=== PATIENT | male | born 1930 | race Caucasian/White ===

== ENCOUNTER 2017-06-19 13:47 | Emergency (ER) | payer BC, OTHER ==
[~2017-06-19 13:47] MED LIST: ASPI81TA28 PO; LOSA1TAB38 PO
[2017-06-19 13:49] VITALS: TEMP 36.7
[2017-06-19 14:35] LABS: BASO % 0.6 %; BASO ABS # 0.03 K/uL (0-0.2); EOS % 6.6 %; EOS ABS # 0.33 K/uL (0-0.5); HEMATOCRIT 39.3 % (42-52); HEMOGLOBIN 13.4 g/dL (14.0-18.0); IG# 0.02 K/uL (0.00-0.02); LYMPH % 38.2 %; LYMPH ABS # 1.92 K/uL (1.2-3.4); MEAN CELL VOLUME 92.5 fL (80-100); MEAN CORPUSCULAR HEMOGLOBIN 31.5 pg (25-34); MEAN CORPUSCULAR HGB CONC 34.1 g/dl (32-36); MEAN PLATELET VOLUME 9.6 fL (7.4-10.4); MONO % 7.4 %; MONO ABS # 0.37 K/uL (0.11-0.59); NEUT % 46.8 %; NEUT ABS # 2.36 K/uL (1.4-6.5); PLATELET COUNT 214 K/uL (130-400); RED CELL DISTRIBUTION WIDTH CV 12.5 % (11.5-14.5); RED CELL DISTRIBUTION WIDTH SD 42.4 fL (36.4-46.3); WHITE BLOOD COUNT 5.03 K/uL (4.8-10.8)
[2017-06-19 14:53] LABS: ALBUMIN 3.7 gm/dl (3.4-5.0); ALT/SGPT 30 U/L (12-78); AST/SGOT 28 U/L (15-37); BLOOD UREA NITROGEN 14 mg/dl (7-18); CALCIUM 8.4 mg/dl (8.5-10.1); CARBON DIOXIDE 25 mmol/L (21-32); CREATININE 1.45 mg/dl (0.60-1.40); GLUCOSE 154 mg/dl (70-99); POTASSIUM 3.8 mmol/L (3.5-5.1); SODIUM 142 mmol/L (136-145)
--- NOTE | 2017-06-19 14:54 | DIAGNOSTIC IMAGING REPORT ---
SINGLE VIEW CHEST CLINICAL HISTORY: Atypical chest pain. FINDINGS: An AP, portable, upright chest radiograph is compared to study dated 01/17/2013 and correlated with abdominal CT dated 12/09/2010. The examination is degraded by portable technique and patient rotation. The heart is top normal for projection and there is atherosclerotic calcification of the thoracic aorta. Extensive calcified pleural plaques are similar to previous. No airspace consolidation or large pleural effusion is identified. No pneumothorax is seen. The skeletal structures are osteopenic. The bony fluoroscopy is grossly intact. IMPRESSION: No acute cardiopulmonary abnormality. Electronically signed by: Jameel Chaudhary M.D. 06/19/2017 2:53 PM Dictated Date/Time: 06/19/2017 2:52 PM
[2017-06-19 15:04] LABS: ALKALINE PHOSPHATASE 88 U/L (45-117)
--- NOTE | 2017-06-19 16:12 | EMERGENCY ROOM VISIT NOTE ---
History Report prepared by Lurdes: Yessica Colvin Under the Supervision of: Dr. Lupe Wadsworth D.O. First contact with patient: 13:55 Chief Complaint: CARDIAC ASSESSMENT Stated Complaint: PAIN IN HEART AREA History of Present Illness The patient is an 87 year old male who presents to the Emergency Room with complaints of improving chest pain starting around 45 minutes ago. The patient was watching TV when he suddenly started complaining of pain in his left chest. He described the pain as sharp. He did not complain of lightheadedness, nausea, arm pain, back pain, neck pain, abdominal pain, or SOB. He did not appear pale or diaphoretic. The pain lasted until arrival to the ED before improving. The pain worsens with deep breaths. He has a history of hypertension. He does not have any history of heart problems, high cholesterol, kidney disease, reflux, or diabetes. He has not had any recent illness or fever. He has not had any change in appetite or activity. The history is mostly provided by the family. Patient is a poor historian secondary to known dementia. Source of History: patient, family Onset: 45 minutes ago Position: chest (left) Quality: sharp Timing: other (improving) Modifying Factors (Worsening): breathing Associated Symptoms: No diaphoresis, No neck pain, No SOB, No nausea, No abdominal pain, No back pain Review of Systems See HPI for pertinent positives & negatives. A total of 10 systems reviewed and were otherwise negative. Past Medical & Surgical Medical Problems: (1) Dementia (2) Hypertension Family History Noncontributory secondary to age. Social History Smoking Status: Never Smoker Marital Status: Housing Status: lives with significant other Occupation Status: retired Current/Historical Medications Scheduled Aspirin (Aspirin Ec), 81 MG PO DAILY Losartan Potassium (Cozaar), 100 MG PO DAILY Allergies Coded Allergies: No Known Allergies (Unverified , 06/19/17) Physical Exam Vital Signs Date Time Temp Pulse Resp B/P (MAP) Pulse Ox O2 Delivery O2 Flow Rate FiO2 06/19/17 17:40 63 18 151/89 98 Room Air 06/19/17 16:39 51 18 155/73 97 Room Air 06/19/17 14:50 60 18 142/70 96 Room Air 06/19/17 14:24 59 06/19/17 13:49 36.7 72 20 161/95 98 Room Air Physical Exam GENERAL: alert, well appearing, well nourished, no distress, non-toxic EYE EXAM: normal conjunctiva, PERRL and EOM's grossly intact OROPHARYNX: no exudate, no erythema, lips, buccal mucosa, and tongue normal and mucous membranes are moist NECK: supple, no nuchal rigidity, no adenopathy, non-tender CHEST: Mild reproducible left chest wall tenderness. No crepitus. No step off. No evidence of trauma. LUNGS: Clear to auscultation. Normal chest wall mechanics HEART: no murmurs, S1 normal and S2 normal ABDOMEN: abdomen soft, non-tender, normo-active bowel sounds, no masses, no rebound or guarding. BACK: Back is symmetrical on inspection and there is no deformity, no midline tenderness, no CVA tenderness. SKIN: no rashes and no bruising UPPER EXTREMITIES: upper extremities are grossly normal. LOWER EXTREMITIES: No pitting edema. NEURO EXAM: Patient pleasantly confused, follows commands, can answer a few basic questions. Cranial nerves II-XII grossly intact, normal speech, no gross weakness of arms, no gross weakness of legs. Medical Decision & Procedures ER Provider Diagnostic Interpretation: Radiology results have been interpreted by the radiologist and reviewed by me. SINGLE VIEW CHEST CLINICAL HISTORY: Atypical chest pain. FINDINGS: An AP, portable, upright chest radiograph is compared to study dated 01/17/2013 and correlated with abdominal CT dated 12/09/2010. The examination is degraded by portable technique and patient rotation. The heart is top normal for projection and there is atherosclerotic calcification of the thoracic aorta. Extensive calcified pleural plaques are similar to previous. No airspace consolidation or large pleural effusion is identified. No pneumothorax is seen. The skeletal structures are osteopenic. The bony fluoroscopy is grossly intact. IMPRESSION: No acute cardiopulmonary abnormality. Electronically signed by: Jameel Chaudhary M.D. 06/19/2017 2:53 PM Dictated Date/Time: 06/19/2017 2:52 PM Laboratory Results 06/19/17 14:20 Red Blood Count 4.25, Mean Corpuscular Volume 92.5, Mean Corpuscular Hemoglobin 31.5, Mean Corpuscular Hemoglobin Concent 34.1, Mean Platelet Volume 9.6, Neutrophils (%) (Auto) 46.8, Lymphocytes (%) (Auto) 38.2, Monocytes (%) (Auto) 7.4, Eosinophils (%) (Auto) 6.6, Basophils (%) (Auto) 0.6, Neutrophils # (Auto) 2.36, Lymphocytes # (Auto) 1.92, Monocytes # (Auto) 0.37, Eosinophils # (Auto) 0.33, Basophils # (Auto) 0.03 06/19/17 14:20 Test 06/19/17 14:20 06/19/17 16:30 White Blood Count 5.03 K/uL (4.8-10.8) Red Blood Count 4.25 M/uL (4.7-6.1) Hemoglobin 13.4 g/dL (14.0-18.0) Hematocrit 39.3 % (42-52) Mean Corpuscular Volume 92.5 fL (80-100) Mean Corpuscular Hemoglobin 31.5 pg (25-34) Mean Corpuscular Hemoglobin Concent 34.1 g/dl (32-36) Platelet Count 214 K/uL (130-400) Mean Platelet Volume 9.6 fL (7.4-10.4) Neutrophils (%) (Auto) 46.8 % Lymphocytes (%) (Auto) 38.2 % Monocytes (%) (Auto) 7.4 % Eosinophils (%) (Auto) 6.6 % Basophils (%) (Auto) 0.6 % Neutrophils # (Auto) 2.36 K/uL (1.4-6.5) Lymphocytes # (Auto) 1.92 K/uL (1.2-3.4) Monocytes # (Auto) 0.37 K/uL (0.11-0.59) Eosinophils # (Auto) 0.33 K/uL (0-0.5) Basophils # (Auto) 0.03 K/uL (0-0.2) RDW Standard Deviation 42.4 fL (36.4-46.3) RDW Coefficient of Variation 12.5 % (11.5-14.5) Immature Granulocyte % (Auto) 0.4 % Immature Granulocyte # (Auto) 0.02 K/uL (0.00-0.02) Prothrombin Time 10.4 SECONDS (9.0-12.0) Prothromb Time International Ratio 1.0 (0.9-1.1) D-Dimer 220 ug/L FEU (0-500) Anion Gap 8.0 mmol/L (3-11) Estimated GFR () 50.5 Estimated GFR (Non- 43.6 BUN/Creatinine Ratio 9.4 (10-20) Calcium Level 8.4 mg/dl (8.5-10.1) Magnesium Level 2.2 mg/dl (1.8-2.4) Total Bilirubin 0.3 mg/dl (0.2-1) Aspartate Amino Transf (AST/SGOT) 28 U/L (15-37) Alanine Aminotransferase (ALT/SGPT) 30 U/L (12-78) Alkaline Phosphatase 88 U/L (45-117) Pro-B-Type Natriuretic Peptide 364 pg/ml (0-1800) Total Protein 7.0 gm/dl (6.4-8.2) Albumin 3.7 gm/dl (3.4-5.0) Globulin 3.3 gm/dl (2.5-4.0) Albumin/Globulin Ratio 1.1 (0.9-2) Thyroid Stimulating Hormone (TSH) 1.100 uIu/ml (0.300-4.500) Troponin I < 0.015 ng/ml (0-0.045) Laboratory results per my review. ECG Per My Interpretation Indication: chest pain Rate (beats per minute): 55 Rhythm: sinus bradycardia Findings: no acute ischemic change, no ectopy, other (normal axis, normal intervals) ED Course 1418: The patient was evaluated in room A10. A complete history and physical exam was performed. 1539: I reevaluated the patient. He has not had any more pain. 1752: Upon reevaluation, the patient is feeling better. I discussed the findings and the treatment plan with the patient and family. They verbalize agreement and understanding. He was discharged home. Medical Decision Differential diagnoses includes but is not limited to acute coronary syndrome, myocardial infarction, pericarditis, pulmonary embolus, aortic dissection, pneumonia, pneumothorax, musculoskeletal, shingles, esophageal. Heart score 3 Patient well-appearing here, no recurrent chest pain. Troponins negative 2. I do not suspect ACS. I do not suspect dissection, PE, occult infectious etiology, effusion, pneumothorax, myocarditis/peritonitis. No evidence of bacteremia/sepsis. I do not suspect hypertensive emergency/urgency. Patient hemodynamically stable throughout. Discussed with family close follow-up with family doctor and possible need for additional cardiac testing as a precaution given age. Patient with no known prior history of GERD/gastritis. I do not suspect perforation or GI bleed. Discussed with him symptoms to watch and return for, they verbalized understanding and were agreeable with plan. Medication Reconcilliation Current Medication List: was personally reviewed by me Blood Pressure Screening Patient's blood pressure: Elevated blood pressure Blood pressure disposition: Referred to PCP Impression Primary Impression: Chest pain Additional Impression: Dementia Scribe Attestation The scribe's documentation has been prepared under my direction and personally reviewed by me in its entirety. I confirm that the note above accurately reflects all work, treatment, procedures, and medical decision making performed by me. Departure Information Dispostion Home / Self-Care Referrals Markus Sanches M.D. (PCP) Patient Instructions My [facility] Additional Instructions Please call your family doctor tomorrow to arrange additional follow-up and likely additional testing. Please discussed symptoms and episode that you had today with your family doctor. If you have any recurrent episodes of chest pain , develop trouble breathing, sweating, nausea, dizziness, or you have any other new concerns, please return to the ER immediately. Please continue your regular medications as prescribed. Problem Qualifiers Primary Impression: Chest pain Chest pain type: unspecified Qualified Codes: R07.9 - Chest pain, unspecified Additional Impression: Dementia Dementia type: unspecified type Dementia behavioral disturbance: without behavioral disturbance Qualified Codes: F03.90 - Unspecified dementia without behavioral disturbance
[2017-06-19 17:40] VITALS: BP 151/89; PULSE 63; O2SAT 98
== END 2017-06-19 18:08 | disposition home or self-care (01) ==
LOC: C.EDB 13:49
DX: R07.9 Chest pain, unspecified (principal); F03.90 Unspecified dementia, unspecified severity, without behavioral disturbance, psychotic disturbance, mood disturbance, and anxiety; I10 Essential (primary) hypertension; Z79.82 Long term (current) use of aspirin; Z79.899 Other long term (current) drug therapy

== ENCOUNTER 2018-09-16 23:29 | Inpatient (IN) ==
[2018-09-16] MEDS ORDERED: ESCITALOPRAM OXALATE 10 MG TAB PO STA (23:43)
[2018-09-16] MEDS ORDERED: LORazepam 1 MG TAB SL STA (23:43)
[2018-09-16] MEDS ORDERED: HALOPERIDOL 5 MG TAB PO STA (23:43)
[2018-09-17 00:25] LABS: Basophils # (auto) 0.02 K/uL (0-0.2); Basophils % (auto) 0.4 %; Eosinophils # (auto) 0.29 K/uL (0-0.5); Eosinophils % (auto) 5.2 %; Hematocrit (blood only) 39.3 % (42-52); Hemoglobin 13.4 g/dL (14.0-18.0); Immature Granulocytes # (auto) 0.02 K/uL (0.00-0.02); Immature Granulocytes % (auto) 0.4 %; Lymphocytes # (auto) 2.11 K/uL (1.2-3.4); Lymphocytes % (auto) 37.7 %; Mean Corpuscular Hgb Conc 34.1 g/dL (32-36); Mean Corpuscular Volume 91.4 fL (80-100); Mean Platelet Volume 10.4 fL (7.4-10.4); Monocytes # (auto) 0.59 K/uL (0.11-0.59); Monocytes % (auto) 10.6 %; Neutrophils # (auto) 2.56 K/uL (1.4-6.5); Neutrophils % (auto) 45.7 %; Platelet Count 168 K/uL (130-400); RDW Coefficient of Variation 13.1 % (11.5-14.5); RDW Standard Deviation 43.5 fL (36.4-46.3); White Blood Count 5.59 K/uL (4.8-10.8)
[2018-09-17 00:44] LABS: BUN Creatinine Ratio 16.6 (10-20); Calcium 8.8 mg/dl (8.5-10.1); Creatinine Clr Calc Pharmacy 34.4 ml/min; Est GFR (African American) 52.8; Est GFR (Non-African American) 45.6; Potassium 3.9 mmol/L (3.5-5.1)
[2018-09-17 00:55] LABS: Albumin Globulin Ratio 1.3 (0.9-2); Bilirubin,Total 0.4 mg/dl (0.2-1); Creatine Kinase MB 2.3 ng/ml (0.5-3.6); Troponin I 0.017 ng/ml (0-0.045)
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
--- NOTE | 2018-09-17 02:46 | History & Physical Report ---
Date of Service September 17, 2018 Assessment & Plan (1) Altered mental status: Patient with advanced vascular dementia, most likely presenting with acute delirium - confusion, agitation and combativeness. He is inattentive during exam. Unable to answer questions or follow commands appropriately. Becomes agitated at times but can be redirected. Workup thus far with stable CBC with normochromic/normocytic anemia, CKD. Normal TSH. CT head with chronic changes and prior CVA. Given escitalopram 10mg po in the ER -Admit to medical floor with 1:1 observation -Fall precautions -Check UA, Mg, PO4, B12 level - goal > 400 -Delirium prevention strategies -PT/OT evaluation for possible placement Present on Admission?: Yes (2) Hypertension: Blood pressure elevated on arrival. -Continue Losartan 100mg po daily -Continue to monitor (3) CVA (cerebral vascular accident): History of prior -Continue ASA, Plavix and Pravastatin (4) Dementia: Severe dementia with behavioral abnormalities -1:1 sitter -Delirium prevention strategies -PT/OT evaluation for possible placement F/E/N- encourage PO intake, NSS at 80mL/hr x 1, monitor electrolytes and replete as needed, AHA diet as tolerated, aspiration precautions Ppx - Low risk for DVT Code - Full. Unable to discuss this with patient at time of admission due to m ental status. This should be clarified with family during the day Dispo - Adm to medical floor History of Present Illness Chief Complaint: Altered mental status Primary Care Provider: Markus Snaches MD Hilario Dixon is an 88yo C male with history of HTN, vascular dementia, prior CVA presenting with altered mental status. Patient is unable to provide a clear history at this time. History obtained from the chart and discussion with ER attending. Per report, patient presently resides at home with his who acts as his psychiatric np. This evening he became combative and tried to kill his . He reportedly ran out of his mood stabilizer a few weeks ago and had some difficulty getting it filled. He was subsequently transferred to [facility]. Patient with advanced vascular dementia as well as B12 deficiency. He has history of wandering outside of his home as well as becoming combative at times. He follows with Neurology, Dr. Bhatt. Patient's has been taking care of him at home but has been considering having him placed in a nursing facility. ER Course: Haldol 5mg PO, Ativan 1mg PO, Escitalopram 10mg po Allergies Allergy/AdvReac Type Severity Reaction Status Date / Time No Known Allergies Allergy Mild Unverified 09/17/18 00:15 Home Medications Home Medications Medication Instructions Recorded Confirmed Type losartan 100 mg tablet 50 mg PO DAILY #45 tab 08/19/18 09/17/18 Rx clopidogrel 75 mg tablet 75 mg PO DAILY #30 tab 09/11/18 09/17/18 Rx pravastatin 10 mg PO DAILY 09/17/18 09/17/18 History Past Med/Surg History Medical History Hypertension (Chronic) Dementia (Chronic) CVA (cerebral vascular accident) Surgical History History of prostatectomy Surgical history unknown Family History Other Cancer Heart disease Hypertension Social History Feels Safe at Home: Yes Smoking Status: Unknown if ever smoked Review of Systems Review of Systems: Unobtainable due to cognitive status Physical Exam Physical Exam: General: patient restless, rearranging blankets and shouting at times, non-toxic in appearance, AA&O x 0, responds to name, follows some commands Skin: warm, dry, intact, no rashes or lesions HEENT: NC/AT, PERRL, EOMI, anicteric sclera, conjunctiva without injection, external ear normal to inspection and nontender, nares patent, moist mucus membranes, tooth decay, no oropharyngeal lesions, neck supple, trachea midline, no LAD, no thyromegaly, no JVD Heart: +S1/S2, regular, no m/r/g Lungs: equal air entry bilaterally, no rales/rhonchi/wheezes Abd: +BS, soft, NT/ND, no masses/organomegaly/ascites Ext: warm, 2+ pulses in UE/LE bilaterally, no clubbing/cyanosis or edema Neuro: grossly nonfocal, moving all extremities on command with equal strength 5/5 Results & Data Vital Signs (Past 12 Hours) Vital Signs Temp Pulse Pulse Resp BP BP Pulse Ox 09/17/18 02:37 67 20 151/113 H 96 09/17/18 01:30 62 20 94 09/17/18 00:35 60 20 112/72 95 09/17/18 00:04 59 L 18 106/72 98 09/17/18 00:03 98 09/16/18 23:35 36.7 C 60 20 196/94 H 98 Laboratory Results Lab Results 09/17/18 09/17/18 09/17/18 Range/Units 00:00 00:00 00:13 WBC 5.59 (4.8-10.8) K/uL RBC 4.30 L (4.7-6.1) M/uL Hgb 13.4 L (14.0-18.0) g/dL Hct 39.3 L (42-52) % MCV 91.4 (80-100) fL MCH 31.2 (25-34) pg MCHC 34.1 (32-36) g/dL RDW Std Deviation 43.5 (36.4-46.3) fL RDW Coeff of Brandy 13.1 (11.5-14.5) % Plt Count 168 (130-400) K/uL MPV 10.4 (7.4-10.4) fL Immature Gran % (Auto) 0.4 % Neut % (Auto) 45.7 % Lymph % (Auto) 37.7 % [place] % (Auto) 10.6 % Eos % (Auto) 5.2 % Baso % (Auto) 0.4 % Immature Gran # (Auto) 0.02 (0.00-0.02) K/uL Neut # (Auto) 2.56 (1.4-6.5) K/uL Lymph # (Auto) 2.11 (1.2-3.4) K/uL [place] # (Auto) 0.59 (0.11-0.59) K/uL Eos # (Auto) 0.29 (0-0.5) K/uL Baso # (Auto) 0.02 (0-0.2) K/uL Sodium 145 (136-145) mmol/L Potassium 3.9 (3.5-5.1) mmol/L Chloride 110 H (98-107) mmol/L Carbon Dioxide 30 (21-32) mmol/L Anion Gap 5.0 (3-11) BUN 23 H (7-18) mg/dl Creatinine 1.39 (0.6-1.4) mg/dl Est Cr Clr Drug Dosing 34.4 ml/min Est GFR ( Amer) 52.8 Est GFR (Non-Af Amer) 45.6 BUN/Creatinine Ratio 16.6 (10-20) Glucose 86 (70-99) mg/dl POC Glucose 86 (70-99) Calcium 8.8 (8.5-10.1) mg/dl Total Bilirubin 0.4 (0.2-1) mg/dl AST 11 L (15-37) U/L ALT 14 (12-78) U/L Alkaline Phosphatase 87 (45-117) U/L Total Creatine Kinase 94 (39-308) U/L CK-MB (CK-2) 2.3 (0.5-3.6) ng/ml CK/CKMB % Calc 2.4 (0-3.0) Troponin I 0.017 (0-0.045) ng/ml Total Protein 7.0 (6.4-8.2) gm/dl Albumin 4.0 (3.4-5.0) gm/dl Globulin 3.0 (2.5-4.0) gm/dl Albumin/Globulin Ratio 1.3 (0.9-2) TSH 2.810 (0.300-4.500) uIu/ml Diagnostic Findings CT Head: No acute intracranial process. Involutional changes with small vessel disease. Old lacunar infarct in the left basal ganglia ECG Additional Comments: NSR at 61, leftward axis, AZ=290, QRS=86, KYk=267, poor qualilty, no STEMI Code Status & VTE Plan Code Status full - unable to discuss this with patient. Should be discussed with family in the AM PG Care Time/CCT Total # of Minutes Spent Total Time Spent with Patient: Total time spent is greater than 50% in coordination of care (as documented) at patient's floor/unit and/or counseling patient: (1) Dementia Dementia type: vascular dementia Dementia behavioral disturbance: with behavioral disturbance Qualified Code(s): F01.51 - Vascular dementia with behavioral disturbance (2) Altered mental status Altered mental status type: unspecified Qualified Code(s): R41.82 - Altered mental status, unspecified (3) Hypertension Hypertension type: essential hypertension Qualified Code(s): I10 - Essential (primary) hypertension
[2018-09-17] MEDS ORDERED: ACETAMINOPHEN 325 MG TAB PO PRN (03:48)
[2018-09-17] MEDS ORDERED: SODIUM CHLORIDE 0.9% 1000ML 1,000 ML IV SCH (03:48)
[2018-09-17 04:06] LABS: Magnesium 2.1 mg/dl (1.8-2.4); Phosphorus 2.7 mg/dl (2.5-4.9)
[2018-09-17] MEDS ORDERED: HALOPERIDOL LACTATE 5 MG/ML 1 ML VIAL IM STA (04:16)
[2018-09-17] MEDS ORDERED: LORazepam 1 MG TAB PO STA (04:16)
--- NOTE | 2018-09-17 06:25 | CT Scan Report ---
CT head/brain wo con CLINICAL HISTORY: Acute change in mental status. COMPARISON STUDY: 09/25/2017 TECHNIQUE: Axial CT of the brain is performed from the vertex to the skull base. IV contrast was not administered for this examination. A dose lowering technique was utilized adhering to the principles of ALARA. CT DOSE: 569.73 mGy.cm FINDINGS: No intra or extra-axial mass lesions are visualized. There is no CT evidence of acute cortical infarc tion. There is no evidence of midline shift. There is no acute hemorrhage. No calvarial fractures ar e visualized. There are patchy white matter hypodensities likely on a small vessel basis. There are old basal gangl ia lacunar infarcts. There is mild ventricular dilatation, finding which is felt to be secondary to volume loss. There is no evidence of acute sinusitis IMPRESSION: No acute intracranial findings Electronically signed by: Sudhakar Barkley M.D. 09/17/2018 6:24 AM
--- NOTE | 2018-09-17 07:40 | XRay Report ---
XR chest 1V portable CLINICAL HISTORY: 88 years-old Male presenting with weakness. TECHNIQUE: Portable upright AP view of the chest was obtained. COMPARISON: 10/03/2017. FINDINGS: Atherosclerosis of the aortic arch. Cardiac silhouette mildly enlarged. Calcified densities project o omar the lungs consistent with pleural plaques. The degree of calcified pleural plaques degrades evalu ation of the lung parenchyma by radiograph. Allowing for this, no focal opacity in comparison to prio r. No large effusion or pneumothorax. Degenerative changes of the thoracic spine. Upper abdomen ruel l. IMPRESSION: 1. The degree of calcified pleural plaques degrades radiographic evaluation limiting diagnostic sens itivity of this exam. Allowing for this, no gross evidence of acute cardiopulmonary disease apart fro m mild cardiomegaly. If there is a high clinical suspicion for thoracic pathology, CT should be obtai kelly. Electronically signed by: Nimesh Dave M.D. 09/17/2018 7:39 AM
[2018-09-17] MEDS ORDERED: ASPIRIN 81 MG ECTAB PO SCH (09:00)
[2018-09-17] MEDS: PRAVASTATIN SOD 10 MG TAB PO SCH (09:14)
[2018-09-17] MEDS: LOSARTAN POTASSIUM 50 MG TAB PO SCH (09:14)
[2018-09-17] MEDS: CLOPIDOGREL BISULFATE 75 MG TAB PO SCH (09:14)
--- NOTE | 2018-09-17 11:16 | Family Medicine Progress Note ---
Date of Service September 17, 2018 Assessment & Plan (1) Altered mental status: 88 y/o M w/ h/o advanced vascular dementia, hypertension, and prior history of cerebral vascular accident; presented to the hospital on 09/16 following acute agitation and aggressiveness towards . Previously had been aggressive and combative with family, and had been admitted to a locked Dementia unit for the safety of himself and others. He has previously walked-out of home on his own and been found far from the house, by neighbors. Altered mental status: -continue 1:1 observation -Fall precautions -Delirium prevention strategies -PT/OT evaluation for possible future placement Hypertension: Blood pressure elevated on arrival. -Continue Losartan 100mg po daily -Continue to monitor h/o CVA: -CT head with chronic changes and prior CVA -Continue ASA, Plavix and Pravastatin Dementia: -continue 1:1 observation -Delirium prevention strategies -PT/OT evaluation for possible placement Code Status: Full. Will need to be clarified with family due to patients inability to respond DVT ppx: low risk, placed on SCD's Dispo: continued monitoring on med/surg, will need evaluation for long-term placement (2) Hypertension: (3) CVA (cerebral vascular accident): (4) Dementia: Supervising Physician Co-Signing Physician Notes ATTENDING NOTE I saw the patient separate from the resident physician and confirmed ochoa portions of the history and exam. Collateral information is obtained from case management notes. Patient was admitted yesterday with acute agitation/aggressiveness in the setting of advanced vascular dementia. This afternoon on the medical floor, he is seated with a one-to-one [employer]; he opens his eyes to voice although does not speak or answer questions otherwise. CT was negative for acute process No pneumonia identified on chest x-ray Urinalysis unremarkable He did have a troponin elevation of 0.147 and 0.213 respectively. Impression Vascular dementia, end-stage Acute agitation with aggression, resolved No signs of focal infection Troponin elevation Plan The patient been previously placed in a dementia unit, though he left this AMA and has been residing at home. I did learn today that a daughter has recently moved back into the house and she may be able to better manage the patient rather than the patient's alone. We will work with case management to see if this is a reasonable option or if we need placement. Patient did have a mild troponin elevation. I do not think there is anything that would be done from a cardiology standpoint given the patient's age and severely advanced dementia. We will review this with the family although I would not recommend pursuing any diagnostic work-up. We could looks to maximize medical therapy which is what I think ultimately would be recommended -could consider beta-roberto or though his heart rate is on the low side; could consider higher dose statin of though may be on a low-dose of pravastatin due to tolerability issues. Subjective Pt had no acute disturbances or episodes of combativeness or aggression overnight; family visited him but there was change to his interactions when they arrived. With assistance was able to get up to bedside chair and utilize urinal. Remains non-vocal to questions, does not attempt to interact with staff. Review of Systems Review of Systems: Unobtainable due to cognitive status Physical Exam Constitutional: well nourished, + frail appearing, + disheveled and + lethargic Eyes: PERRL; no conjunctival abnormality and no corneal abnormality Neck: normal visual inspection Thyroid: no thyromegaly Cardiovascular: Rate/Rhythm: regular rate and regular rhythm Heart Sounds: normal S1 and normal S2; no gallop, no murmur and no cardiac rub Psychiatric: Apperance: + inappropriately groomed Eye Contact: + poor eye contact Speech: + mute Results & Data Vital Signs (Past 12 Hours) Vital Signs Temp Pulse Pulse Pulse Resp BP BP 09/17/18 11:00 52 L 18 184/90 H 09/17/18 10:25 183/95 H 09/17/18 08:00 36.7 C 57 L 18 192/85 H 09/17/18 04:12 36.2 C L 68 16 102/50 L 09/17/18 03:44 67 20 09/17/18 02:37 67 20 151/113 H 09/17/18 01:30 62 20 09/17/18 00:35 60 20 112/72 09/17/18 00:04 59 L 18 106/72 09/17/18 00:03 09/16/18 23:35 36.7 C 60 20 196/94 H Pulse Ox 09/17/18 11:00 97 09/17/18 10:25 09/17/18 08:00 94 09/17/18 04:12 95 09/17/18 03:44 99 09/17/18 02:37 96 09/17/18 01:30 94 09/17/18 00:35 95 09/17/18 00:04 98 09/17/18 00:03 98 09/16/18 23:35 98 PG Care Time/CCT Total # of Minutes Spent Total Time Spent with Patient: Total time spent is greater than 50% in coordination of care (as documented) at patient's floor/unit and/or counseling patient: Resident Activity Tracking Resident Involvement: Resident Care Provided Care Provided: Adult Hospital Medicine (1) Dementia Dementia behavioral disturbance: with behavioral disturbance Dementia type: vascular dementia Qualified Code(s): F01.51 - Vascular dementia with behavioral disturbance (2) Altered mental status Altered mental status type: unspecified Qualified Code(s): R41.82 - Altered mental status, unspecified (3) Hypertension Hypertension type: essential hypertension Qualified Code(s): I10 - Essential (primary) hypertension
[2018-09-17 12:17] LABS: Appearance Urine Clear (Clear); Bilirubin Urine Negative (Negative); Blood Urine Negative (Negative); Color Urine Yellow; Glucose Urine UA Negative (Negative); Ketones Urine Negative (Negative); Leukocyte Esterase Urine Negative (Negative); Nitrite Urine Negative (Negative); Protein Urine Negative (Negative); Specific Gravity Urine 1.014 (1.000-1.030); Urobilinogen Urine Negative (Negative); pH Urine 7.5 (4.5-7.5)
[2018-09-18] MEDS: LOSARTAN POTASSIUM 50 MG TAB PO SCH (07:59)
[2018-09-18] MEDS: CLOPIDOGREL BISULFATE 75 MG TAB PO SCH (07:59)
[2018-09-18] MEDS: PRAVASTATIN SOD 10 MG TAB PO SCH (08:00)
[2018-09-18] MEDS: ASPIRIN 81 MG CHEW PO SCH (08:18)
[2018-09-18] MEDS ORDERED: LOSARTAN POTASSIUM 50 MG TAB PO STA (09:10)
--- NOTE | 2018-09-18 11:31 | Family Medicine Progress Note ---
Date of Service September 18, 2018 Assessment & Plan (1) Altered mental status: 88 y/o M w/ h/o advanced vascular dementia, hypertension, and prior history of cerebral vascular accident; presented to the hospital on 09/16 following acute agitation and aggressiveness towards . Previously had been aggressive and combative with family, and had been admitted to a locked Dementia unit for the safety of himself and others. He has previously walked-out of home on his own and been found far from the house, by neighbors. Altered mental status: -continue 1:1 observation -Fall precautions -Delirium prevention strategies -PT/OT evaluation for possible future placement Hypertension: Blood pressure elevated on arrival. -increased Losartan to 100mg po daily from 50mg -Continue to monitor Inferior infarct: -mild troponin elevation on 09/17, 09/16/18 EKG demonstrates inferior infarct of uncertain age when compared to 10/02/17 EKG -Ordered: bedside Echo for determination of acuity of wall motion abnormality h/o CVA: -CT head with chronic changes and prior CVA -Continue ASA, Plavix and Pravastatin Dementia: -continue 1:1 observation -Delirium prevention strategies -PT/OT evaluation for possible placement Code Status: Full. Will need to be clarified with family due to patients inability to respond DVT ppx: low risk, placed on SCD's Dispo: continued monitoring on med/surg, will need evaluation for long-term placement (2) Hypertension: (3) CVA (cerebral vascular accident): (4) Dementia: Supervising Physician Co-Signing Physician Notes ATTENDING NOTE I saw the patient with the resident physician and confirmed ochoa portion history and physical exam. Agree with the impression and plan as noted above. He did have a troponin elevation of 0.147 and 0.213 respectively, and in reviewing his EKGs it looks as if he had a inferior wall infarction in the interim between his last EKG in the summer 2017 and his presentation here yesterday. However, I suspect the troponin elevation was more a a demand ischemia picture rather than evidence of this new (since last admission) [place]. Given the patient's advanced dementia would not recommend any further work-up other than a resting echocardiogram; determination of his wall motion and ejection fraction may help us better manage him medically. This was discussed with family at bedside. Impression Vascular dementia, end-stage Acute agitation with aggression, resolved No signs of focal infection Coronary artery disease with mild troponin elevation Plan Resting echocardiogram today Monitor blood pressure may need to adjust medications, later as noted his heart rate is on the low side so this would prohibit beta-blockers Discharge planning for placement. Subjective Pt had no acute disturbances or episodes of combativeness or aggression overnight; family visited him and believes he is much closer to his baseline today that previously. With assistance was able to get up to bedside chair and utilize urinal. Pt responds nonsensically to questions. Review of Systems Review of Systems: Unobtainable due to cognitive status Physical Exam Constitutional: well nourished, + frail appearing and cooperative Respiratory: normal respiratory effort and + respiratory distress; no retractions Auscultation: no crackles, no rales and no wheezes Cardiovascular: Rate/Rhythm: regular rate and regular rhythm Heart Sounds: normal S1 and normal S2; no gallop, no murmur and no cardiac rub Neurologic: Speech / Cognition: + abnormal cognition Psychiatric: Orientation: oriented to person and cooperative; + not oriented to place and + not oriented to time Apperance: + disheveled Eye Contact: + fair eye contact Affect: euthymic affect Thought Process: + looseness of associations and + incoherent thought process Insight: + poor insight Results & Data Vital Signs (Past 12 Hours) Vital Signs Temp Pulse Pulse Resp BP Pulse Ox 09/18/18 07:55 56 L 175/83 H 09/18/18 06:55 36.6 C 56 L 16 177/90 H 95 09/18/18 02:37 167/83 H 09/17/18 23:27 36.9 C 52 L 17 189/98 H 98 Laboratory Results 09/17/18 09/17/18 Range/Units 14:55 11:55 Troponin I 0.213 H* (0-0.045) ng/ml Urine Color Yellow Urine Appearance Clear (Clear) Urine pH 7.5 (4.5-7.5) Ur Specific [place] 1.014 (1.000-1.030) Urine Protein Negative (Negative) Urine Glucose (UA) Negative (Negative) Urine Ketones Negative (Negative) Urine Blood Negative (Negative) Urine Nitrite Negative (Negative) Urine Bilirubin Negative (Negative) Urine Urobilinogen Negative (Negative) Ur Leukocyte Esterase Negative (Negative) Medications Administered Current Inpatient Medications Acetaminophen (Tylenol) 650 mg PO Q4H PRN PRN Reason: pain/fever Stop: 10/17/18 03:47 Aspirin (Aspirin Chew) 81 mg PO DAILY [facility] Stop: 10/18/18 08:59 Last Admin: 09/18/18 08:18 Dose: 81 mg Documented by: Clopidogrel Bisulfate (Plavix) 75 mg PO DAILY [facility] Stop: 10/17/18 08:59 Last Admin: 09/18/18 07:59 Dose: 75 mg Documented by: Losartan Potassium (Cozaar) 100 mg PO DAILY [facility] Stop: 10/19/18 08:59 Pravastatin Sodium (Pravachol) 10 mg PO DAILY [facility] Stop: 10/17/18 08:59 Last Admin: 09/18/18 08:00 Dose: 10 mg Documented by: PG Care Time/CCT Total # of Minutes Spent Total Time Spent with Patient: Total time spent is greater than 50% in coordination of care (as documented) at patient's floor/unit and/or counseling patient: Resident Activity Tracking Resident Involvement: Resident Care Provided Care Provided: Adult Hospital Medicine (1) Dementia Dementia behavioral disturbance: with behavioral disturbance Dementia type: vascular dementia Qualified Code(s): F01.51 - Vascular dementia with behavioral disturbance (2) Altered mental status Altered mental status type: unspecified Qualified Code(s): R41.82 - Altered mental status, unspecified (3) Hypertension Hypertension type: essential hypertension Qualified Code(s): I10 - Essential (primary) hypertension
[2018-09-19] MEDS: CLOPIDOGREL BISULFATE 75 MG TAB PO SCH (08:24)
[2018-09-19] MEDS: LOSARTAN POTASSIUM 50 MG TAB PO SCH (08:24)
[2018-09-19] MEDS: PRAVASTATIN SOD 10 MG TAB PO SCH (08:24)
[2018-09-19] MEDS: ASPIRIN 81 MG CHEW PO SCH (08:24)
--- NOTE | 2018-09-19 09:52 | Family Medicine Progress Note ---
Date of Service September 19, 2018 Assessment & Plan (1) Altered mental status: 88 y/o M w/ h/o advanced vascular dementia, hypertension, and prior history of cerebral vascular accident; presented to the hospital on 09/16 following acute agitation and aggressiveness towards . Previously had been aggressive and combative with family, and had been admitted to a locked Dementia unit for the safety of himself and others. He has previously walked-out of home on his own and been found far from the house, by neighbors. Dementia: -continue 1:1 observation -Delirium prevention strategies -PT/OT demonstrating patient has high need for assistance -care management assisting with placement Altered mental status: -continue 1:1 observation -Fall precautions -Delirium prevention strategies -PT/OT evaluation for possible future placement Hypertension: -systolic blood pressure elevated on arrival -continue [id number] po daily -consider adding hydralazine for improved systolic control without compromise of HR -Continue to monitor Inferior infarct: -mild troponin elevation on 09/17, 09/16/18 EKG demonstrates inferior infarct of uncertain age when compared to 10/02/17 EKG -Ordered: bedside Echo for determination of acuity of wall motion abnormality h/o CVA: -CT head with chronic changes and prior CVA -Continue ASA, Plavix and Pravastatin Code Status: Full. Will need to be clarified with family due to patients inability to respond DVT ppx: low risk, placed on SCD's Dispo: continued monitoring on med/surg, will need evaluation for long-term placement (2) Hypertension: (3) CVA (cerebral vascular accident): (4) Dementia: Supervising Physician Co-Signing Physician Notes ATTENDING NOTE I saw the patient independent of the resident physician and confirmed ochoa portion history and physical exam. Agree with the impression and plan as noted above. I reviewed the results of the echocardiogram with the family present. Discussed that the patient had an inferior lateral wall DE sometime between September of last year and this hospitalization. His EKG is changed and his echocardiogram shows hypokinesis consistent with the changes we see on the EKG. I discussed how we would treat this in setting of somebody younger or at the same age without the end-stage dementia -the family did not want to pursue any additional cardiac work-up which I think is reasonable given the patient's overall condition. Did discuss how we would treat coronary artery disease medically -including some the medications that he is already on. The family seemed comfortable with this approach. Impression Vascular dementia, end-stage Acute agitation with aggression, resolved No signs of focal infection Coronary artery disease Plan Continue increased dose of losartan Add low-dose Norvasc He probably would not tolerate a beta-roberto with his low pulse Continue aspirin and Plavix (this has been previously instituted for history of CVA) Could consider a higher dose statin left suspect he is on pravastatin due to statin tolerability issues Subjective Pt had no acute disturbances or episodes of combativeness or aggression overnight. Works with assistance and able to get up to bedside chair and utilize urinal. Still working toward getting placement per family's request and concern about his long-term ability to be safe at home. Review of Systems Review of Systems: Unobtainable due to mental health condition Physical Exam Constitutional: well nourished, + frail appearing, + disheveled, cooperative and + lethargic Eyes: PERRL; no conjunctival abnormality and no corneal abnormality Neck: normal visual inspection Thyroid: no thyromegaly Respiratory: normal respiratory effort and + respiratory distress; no retractions Auscultation: no crackles, no rales and no wheezes Cardiovascular: Rate/Rhythm: regular rate and regular rhythm Heart Sounds: normal S1 and normal S2; no gallop, no murmur and no cardiac rub Neurologic: Speech / Cognition: + abnormal cognition Psychiatric: Orientation: oriented to person and cooperative; + not oriented to place and + not oriented to time Apperance: + disheveled; + inappropriately groomed Eye Contact: + fair eye contact and + poor eye contact Speech: + mute Affect: euthymic affect Thought Process: + looseness of associations and + incoherent thought process Insight: + poor insight Results & Data Vital Signs (Past 12 Hours) Vital Signs Temp Pulse Pulse Resp BP Pulse Ox 09/19/18 07:06 36.7 C 64 18 174/84 H 90 09/18/18 23:08 36.9 C 75 18 174/91 H 95 Diagnostic Findings Per Echo report (09/18/18): compared to previous study from 09/27/17, there is hypokinesis of the inferolateral wall and inferior wall; mild aortic valve sclerosis, and mild aortic regurgitation Medications Administered Current Inpatient Medications Acetaminophen (Tylenol) 650 mg PO Q4H PRN PRN Reason: pain/fever Stop: 10/17/18 03:47 Aspirin (Aspirin Chew) 81 mg PO DAILY ENMA Stop: 10/18/18 08:59 Last Admin: 09/19/18 08:24 Dose: 81 mg Documented by: Clopidogrel Bisulfate (Plavix) 75 mg PO DAILY ENMA Stop: 10/17/18 08:59 Last Admin: 09/19/18 08:24 Dose: 75 mg Documented by: Losartan Potassium (Cozaar) 100 mg PO DAILY ENMA Stop: 10/19/18 08:59 Last Admin: 09/19/18 08:24 Dose: 100 mg Documented by: Pravastatin Sodium (Pravachol) 10 mg PO DAILY ENMA Stop: 10/17/18 08:59 Last Admin: 09/19/18 08:24 Dose: 10 mg Documented by: PG Care Time/CCT Total # of Minutes Spent Total Time Spent with Patient: Total time spent is greater than 50% in coordination of care (as documented) at patient's floor/unit and/or counseling patient: Resident Activity Tracking Resident Involvement: Resident Care Provided Care Provided: Adult Hospital Medicine (1) Dementia Dementia behavioral disturbance: with behavioral disturbance Dementia type: vascular dementia Qualified Code(s): F01.51 - Vascular dementia with behavioral disturbance (2) Altered mental status Altered mental status type: unspecified Qualified Code(s): R41.82 - Altered mental status, unspecified (3) Hypertension Hypertension type: essential hypertension Qualified Code(s): I10 - Essential (primary) hypertension
[2018-09-19] MEDS ORDERED: AMLODIPINE BESYLATE 5 MG TAB PO STA (16:47)
[2018-09-20] MEDS ORDERED: AMLODIPINE BESYLATE 5 MG TAB PO SCH (09:00)
[2018-09-20] MEDS: CLOPIDOGREL BISULFATE 75 MG TAB PO SCH (10:02)
[2018-09-20] MEDS: LOSARTAN POTASSIUM 50 MG TAB PO SCH (10:02)
[2018-09-20] MEDS: PRAVASTATIN SOD 10 MG TAB PO SCH (10:02)
[2018-09-20] MEDS: ASPIRIN 81 MG CHEW PO SCH (10:05)
--- NOTE | 2018-09-20 14:16 | Discharge Summary ---
Date of Service September 20, 2018 Admission HPI Per Admitting Provider Hilario Dixon is an 88yo C male with history of HTN, vascular dementia, prior CVA presenting with altered mental status. Patient is unable to provide a clear history at this time. History obtained from the chart and discussion with ER attending. 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 This evening he became combative and tried to kill his . He reportedly ran out of his mood stabilizer a few weeks ago and had some difficulty getting it filled. He was subsequently transferred to [facility]. Patient with advanced vascular dementia as well as B12 deficiency. He has history of wandering outside of his home as well as becoming combative at times. He follows with Neurology, Dr. Bhatt. Patient's has been taking care of him at home but has been considering having him placed in a nursing facility. ER Course: Haldol 5mg PO, Ativan 1mg PO, Escitalopram 10mg po Admission Exam (Per Admitting) Constitutional well nourished, + frail appearing, + disheveled, cooperative and + lethargic Eyes PERRL; no conjunctival abnormality and no corneal abnormality Neck normal visual inspection Thyroid: no thyromegaly Respiratory normal respiratory effort and + respiratory distress; no retractions Auscultation: no crackles, no rales and no wheezes Cardiovascular Rate/Rhythm: regular rate and regular rhythm Heart Sounds: normal S1 and normal S2; no gallop, no murmur and no cardiac rub Neurologic Speech / Cognition: + abnormal cognition Psychiatric Orientation: oriented to person and cooperative; + not oriented to place and + not oriented to time Apperance: + disheveled; + inappropriately groomed Eye Contact: + fair eye contact and + poor eye contact Speech: + mute Affect: euthymic affect Thought Process: + looseness of associations and + incoherent thought process Insight: + poor insight Discharge Data Consultations 09/17/18 01:02 ED Decision to Admit Stat Hospital Course (1) Altered mental status: 88 y/o M w/ h/o advanced vascular dementia, hypertension, and prior history of cerebral vascular accident; presented to the hospital on 09/16 following acute agitation and aggressiveness towards . Previously had been aggressive and combative with family, and had been admitted to a locked Dementia unit for the safety of himself and others. He has previously walked-out of home on his own and been found far from the house, by neighbors. Dementia: -PT/OT evaluation demonstrated patient has high need for assistance -will need continued home health, and increased patient safety precautions at home -did not qualify for skilled-nursing facility due to stage of dementia -family has contact numbers for continued support and home health resources, and encouraged to find increased ways of securing home to prevent him from wandering out into road or far away from home. Hypertension: -continue [id number] daily -continue Norvasc 2.5mg daily Inferior infarct: -mild troponin elevation on 09/17 -09/16/18 EKG demonstrates inferior infarct of uncertain age when compared to 10/02/17 EKG -Echo on 09/18/18 demonstrated inferolateral & inferior wall hypokinesis -continue home ASA, Plavix, and Pravastatin h/o CVA: -CT head with chronic changes and prior CVA -Continue ASA, Plavix and Pravastatin Code Status: Full. (2) Hypertension: (3) CVA (cerebral vascular accident): (4) Dementia: Supervising Physician Co-Signing Physician Notes Patient seen and examined with PGY-1 Dr. Smith. Agree with history, exam findings, assessment and plan of care as outlined by Dr. Smith with the following updates and changes. In brief, Mr. Dixon is an 88 year old male with history of vascular dementia, prior CVA, and hypertension admitted with behavioral changes and wandering. His dementia is end stage. His acute aggitation for which he was originally admitted has resolved now. During his stay, he was found to have new EKG changes and echo with new hypokinesis consistent with ischemic changes on the EKG. He is not a good candidate cath/stent and is being medically managed/optimized. He is on dual antiplatelet therapy and pravastatin. His blood pressures have been elevated. His losartan dose was increased from 50mg to 100mg. Continued amlodipine 2.5mg. Rehab stay was denied despite lalz-in-aajv done by Dr. Calderon. Will discharge home with home services and referral to [facility]. Close follow up with PCP. I personally spent 35 minutes discharge planning for this patient. Resident Activity Tracking Resident Involvement: Resident Care Provided Care Provided: Adult Hospital Medicine
== END 2018-09-20 15:38 | disposition home health service (06) | DRG 884 ==
LOC: ED 23:29 → 3N 09-17 02:01 → INTOOBSV 09-17 02:01 → 3N 09-17 03:45 → SUATTDRO 09-17 10:28 → 3N 09-18 17:06
DX: Z79.899 Other long term (current) drug therapy; Z86.73 Personal history of transient ischemic attack (TIA), and cerebral infarction without residual deficits; Z79.02 Long term (current) use of antithrombotics/antiplatelets; F01.51 Vascular dementia, unspecified severity, with behavioral disturbance; I10 Essential (primary) hypertension

== ENCOUNTER 2019-10-24 12:53 | Inpatient (IN) ==
[2019-10-24] MEDS ORDERED: LORazepam 0.5 MG/1 ML VIAL IV STA (13:14)
[2019-10-24 13:38] LABS: Basophils # (auto) 0.01 K/uL (0-0.2); Basophils % (auto) 0.1 %; Eosinophils # (auto) 0.22 K/uL (0-0.5); Eosinophils % (auto) 2.9 %; Hematocrit (blood only) 34.3 % (42-52); Hemoglobin 11.4 g/dL (14.0-18.0); Immature Granulocytes # (auto) 0.02 K/uL (0.00-0.02); Immature Granulocytes % (auto) 0.3 %; Lymphocytes # (auto) 1.01 K/uL (1.2-3.4); Lymphocytes % (auto) 13.5 %; Mean Corpuscular Hemoglobin 32.1 pg (25-34); Mean Corpuscular Hgb Conc 33.2 g/dL (32-36); Mean Corpuscular Volume 96.6 fL (80-100); Monocytes % (auto) 6.7 %; Neutrophils # (auto) 5.74 K/uL (1.4-6.5); Neutrophils % (auto) 76.5 %; Platelet Count 182 K/uL (130-400); RDW Coefficient of Variation 12.8 % (11.5-14.5); RDW Standard Deviation 45.2 fL (36.4-46.3); Red Blood Count 3.55 M/uL (4.7-6.1)
[2019-10-24 13:54] LABS: Appearance Urine Clear (Clear); Bilirubin Urine Negative (Negative); Blood Urine Negative (Negative); Color Urine Yellow; Epithelial Cell Urine Auto >30 /lpf (0-5); Glucose Urine UA Negative (Negative); Ketones Urine Trace (Negative); Leukocyte Esterase Urine 1+ (Negative); Nitrite Urine Negative (Negative); Protein Urine Negative (Negative); RBC Urine Automated 0-4 /hpf (0-4); Specific Gravity Urine 1.025 (1.000-1.030); Urobilinogen Urine Negative (Negative)
--- NOTE | 2019-10-24 13:56 | Emergency Department Note ---
Impression & Plan Syncope and collapse, Bradycardia, Acute hypotension ED Provider Note INFORMANT: Patient ED PROVIDER(S): Milo Arias MD CHIEF COMPLAINT: Syncope PLAN: Disposition: Admitted Condition: Good MEDICAL DECISION MAKING: Patient presented after a syncopal episode with hypotension. He had bradycardia as well. I did order a saline bolus and IV atropine prehospital. This worked well to increase his heart rate and blood pressure. The patient did not appear to have any traumatic findings on examination. He was uncooperative for the exam and answers only minimal questioning, specifically no chest, head or abdominal pain. Due to his agitation he was given 0.5 mg of Ativan. ECG showed a sinus rhythm with PACs. No obvious ST elevation. Cardiac monitoring revealed a sinus rhythm. The patient did very well during his time in the emergency department. I did talk with the family and they did note that he is a DNR/DNI. They were updated on the findings. He will underwent CT imaging of the head as well as PE study and these were both negative for acute process Triage Nursing notes reviewed and agree them. Additional history obtained from EMS, [facility] physician, and family. Prior medical records reviewed, history of dementia, hypertension, CAD and CVA. Vital Signs: reviewed and remarkable for hypotension and bradycardia prehospital. Stabilized after arrival. Differential diagnosis: Vasovagal event, dehydration, infection, hypoglycemia, electrolyte abnormalities, cardiac sources, intracerebral event, pulmonary embolism, seizure, toxicologic, neurologic, as well as other pathologies. Diagnostics interpreted by me: ECG: Twelve-lead ECG reveals a sinus rhythm at 79 bpm. There is PACs. Inferior Q waves present. No ST elevation or depression. Poor baseline data. No PVCs. Cardiac Monitoring: Cardiac monitoring ordered by me: The patient was placed on continuous cardiac monitoring and observed. It revealed a normal sinus rhythm at 62 beats per minute without ectopy or evidence of dysrhythmia. Imaging studies: Chest x-ray. Findings: A chest x-ray was performed and revealed no pneumothorax, effusion, infiltrate, pulmonary edema, free air under the diaphragm, or wide mediastinum. Impression: No acute disease. Head CT: A noncontrast CT scan of the head was performed and was negative for tumor, fracture, intracranial hemorrhage, or other acute pathology. CT PE study was negative for acute pathology. Pulmonary nodule noted. Consultation(s): Dr. Oli Roberts, physician at [facility]. We discussed his case. He is not intimately familiar with him as he did not admit him to the facility. He was seen by the nurse practitioner. He was not in the facility when the event occurred. HPI: The patient is a 89 year old male with history of dementia, CVA, and HTN who presents to the Emergency Room after experiencing a syncopal episode. EMS reported that the patient was walking back to his room. He appeared to be diaphoretic. He collapsed. He was out for about 3 to 4 minutes. Upon EMS arrival he was hypotensive and bradycardic. This started just prior to arrival. EMS contact me for medical command. The patient was given a normal saline bolus of 500 mL as well as 0.5 of atropine due to his hypotension of 79 systolic and a heart rate of 46. He was agitated for EMS and they note that that is his baseline as he has dementia. They note they tried to contact family but were unable to reach anyone and did leave messages. Patient denies headache, chest pain, or abdominal pain. The remainder of the history is limited secondary to his dementia and advanced medical acuity. ROS: Unobtainable secondary to dementia and medical acuity. PAST MEDICAL HISTORY:See Below, dementia, CVA, CAD PAST SURGICAL HISTORY:See Below, FAMILY HISTORY:See Below SOCIAL HISTORY:See Below, resides at a nursing care facility HOME MEDICATIONS:See Below ALLERGIES:See Below VITALS:See Below PHYSICAL EXAMINATION: GENERAL: Awake, [id number], mildly agitated but no distress HENT: Normocephalic, atraumatic. Oropharynx unremarkable. EYES: Normal conjunctiva. Sclera non-icteric. NECK: Inspection normal. Non-tender. Supple. No nuchal rigidity. FROM. No masses. RESPIRATORY: Clear to auscultation. No wheezes. No rales. Normal respiratory effort. CARDIAC: Borderline bradycardic rate. Normal rhythm. No murmurs. No rubs. Extremities warm and well perfused. Pulses equal. No JVD. GI: Soft, non-distended. No tenderness to palpation. No rebound or guarding. No masses. RECTAL: Deferred. MUSCULOSKELETAL: Atraumatic. Chest examination reveals no tenderness. The back is symmetrical on inspection without obvious abnormality. There is no CVA tenderness to palpation. No joint edema. LOWER EXTREMITIES: Calves are equal size bilaterally and non-tender. No edema. No discoloration. NEURO: Demented sensorium. Moving arms and legs randomly. Not following commands. SKIN: No rash or jaundice noted. Critical Care: I have personally spent greater than 32 minutes of critical care time in the direct management of this patient. This includes bedside care, interpretation of diagnostic studies, and testing, discussion with consultants, patient, and family members, and other required patient management activities. These minutes are in excess of all separately billable procedures. Milo Arias MD Past Med/Surg History Medical History (Updated 10/24/19 @ 13:49 by Milo Arias MD) CVA (cerebral vascular accident) Dementia Hypertension Surgical History (Updated 09/17/18 @ 03:02 by Lexi Starr DO) History of prostatectomy Surgical history unknown Family History Other Cancer Heart disease Hypertension Social History (Updated 12/30/18 @ 13:32 by Tish Bennett) Smoking Status: Never smoker Second Hand Exposure: No; Hx Alcohol Use: No Hx Substance Use: No Preferred Language: Vincentian Communication Ability: Impaired Skein Spooler Required: No Beliefs That Will Affect Care: None marital status: Current Living Situation: Spouse Feels Safe at Home: Yes Allergies Allergies Allergy/AdvReac Type Severity Reaction Status Date / Time No Known Allergies Allergy Mild Unverified 10/24/19 14:44 Home Meds Home Medications Medication Instructions Recorded Confirmed aspirin 81 mg tablet,delayed 81 mg PO DAILY tab 12/30/18 10/24/19 release aspirin 81 mg PO DAILY 10/24/19 10/24/19 quetiapine [Seroquel] 25 mg PO BID 10/24/19 10/24/19 Previous Rx's Medication Instructions Recorded clopidogrel 75 mg tablet 75 mg PO DAILY #30 tab 09/11/18 escitalopram oxalate 10 mg tablet 10 mg PO DAILY #30 tab 09/23/18 amlodipine 2.5 mg tablet 2.5 mg PO DAILY #30 tab 10/11/18 irbesartan 150 mg tablet 150 mg PO DAILY #90 tab 11/22/18 pravastatin 10 mg tablet 10 mg PO HS #30 tab 12/11/18 zolpidem 5 mg tablet 5 mg PO HS #30 tab 12/30/18 Results & Data (ED) Vital Signs Vital Signs - 24 hr 10/24/19 13:01 10/24/19 13:03 10/24/19 13:14 Temperature 36.7 C Temperature Source Oral Pulse Rate 65 67 Pulse Rate [Left Finger] Pulse Rate from SpO2 Sensor 66 Pulse Rhythm Regular Pulse Strength Normal Respiratory Rate 22 16 Respiratory Effort / Characteristics Non-Labored Respiratory Depth Normal Respiratory Pattern Regular Blood Pressure 93/71 L 106/50 L Blood Pressure [Right Arm] Blood Pressure Mean 78 59 Blood Pressure Mean [Right Arm] Blood Pressure Position Sitting Pulse Oximetry 98 98 99 Oxygen Delivery Method Room Air Sepsis Recent Fever Within 48 Hours No Sepsis New/Unexplained Change in Mental Status No Sepsis Action Taken by Nursing No Action Required 10/24/19 13:52 10/24/19 14:41 Temperature Temperature Source Pulse Rate Pulse Rate [Left Finger] 66 68 Pulse Rate from SpO2 Sensor Pulse Rhythm Pulse Strength Respiratory Rate 16 22 Respiratory Effort / Characteristics Respiratory Depth Respiratory Pattern Blood Pressure Blood Pressure [Right Arm] 123/109 H 98/53 L Blood Pressure Mean Blood Pressure Mean [Right Arm] 113 68 Blood Pressure Position Pulse Oximetry 94 96 Oxygen Delivery Method Sepsis Recent Fever Within 48 Hours Sepsis New/Unexplained Change in Mental Status Sepsis Action Taken by Nursing Laboratory Data Result diagrams: 10/24/19 13:25 10/24/19 13:25 Lab Results 10/24/19 10/24/19 10/24/19 Range/Units 13:25 13:25 13:30 WBC 7.50 (4.8-10.8) K/uL RBC 3.55 L (4.7-6.1) M/uL Hgb 11.4 L (14.0-18.0) g/dL Hct 34.3 L (42-52) % MCV 96.6 (80-100) fL MCH 32.1 (25-34) pg MCHC 33.2 (32-36) g/dL RDW Std Deviation 45.2 (36.4-46.3) fL RDW Coeff of Brnady 12.8 (11.5-14.5) % Plt Count 182 (130-400) K/uL MPV 10.0 (7.4-10.4) fL Immature Gran % (Auto) 0.3 % Neut % (Auto) 76.5 % Lymph % (Auto) 13.5 % [place] % (Auto) 6.7 % Eos % (Auto) 2.9 % Baso % (Auto) 0.1 % Neut # (Auto) 5.74 (1.4-6.5) K/uL Lymph # (Auto) 1.01 L (1.2-3.4) K/uL [place] # (Auto) 0.50 (0.11-0.59) K/uL Eos # (Auto) 0.22 (0-0.5) K/uL Baso # (Auto) 0.01 (0-0.2) K/uL Immature Gran # (Auto) 0.02 (0.00-0.02) K/uL Sodium 144 (136-145) mmol/L Potassium 5.1 (3.5-5.1) mmol/L Chloride 111 H (98-107) mmol/L Carbon Dioxide 27 (21-32) mmol/L Anion Gap 5.0 (3-11) BUN 30 H (7-18) mg/dl Creatinine 1.32 (0.6-1.4) mg/dl Est Cr Clr Drug Dosing 34.3 ml/min Est GFR ( Amer) 55.8 Est GFR (Non-Af Amer) 48.2 BUN/Creatinine Ratio 22.6 H (10-20) Glucose 97 (70-99) mg/dl Calcium 8.6 (8.5-10.1) mg/dl Magnesium 2.4 (1.8-2.4) mg/dl Total Bilirubin 0.3 (0.2-1) mg/dl AST 14 L (15-37) U/L ALT 14 (12-78) U/L Alkaline Phosphatase 79 (45-117) U/L Troponin I < 0.015 (0-0.045) ng/ml Total Protein 6.0 L (6.4-8.2) gm/dl Albumin 3.2 L (3.4-5.0) gm/dl Globulin 2.8 (2.5-4.0) gm/dl Albumin/Globulin Ratio 1.1 (0.9-2) TSH 1.520 (0.300-4.500) uIu/ml Urine Color Yellow Urine Appearance Clear (Clear) Urine pH 7.0 (4.5-7.5) Ur Specific [place] 1.025 (1.000-1.030) Urine Protein Negative (Negative) Urine Glucose (UA) Negative (Negative) Urine Ketones Trace H (Negative) Urine Blood Negative (Negative) Urine Nitrite Negative (Negative) Urine Bilirubin Negative (Negative) Urine Urobilinogen Negative (Negative) Ur Leukocyte Esterase 1+ H (Negative) Urine WBC (Auto) 5-10 H (0-5) /hpf Urine RBC (Auto) 0-4 (0-4) /hpf U Hyaline Cast (Auto) 10-30 H (0-5) /lpf U Epithel Cells (Auto) >30 H (0-5) /lpf Urine Bacteria (Auto) 2+ H (Negative) Ur Renal Epithelial Cell Not Reportable Administered Medications Discontinued Medications Lorazepam (Ativan) 0.5 mg in 1 mls @ 1 mls/min IV NOW STA Stop: 10/24/19 13:15 Last Admin: 10/24/19 13:20 Dose: 1 mls/min Documented by: [id number] Ioversol (Optiray 320 125ml) 119 ml IV ONCE ONE Stop: 10/24/19 15:37 Last Admin: 10/24/19 15:36 Dose: 119 ml Documented by: [id number] Discharge Plan Visit Data Chief Complaint: Syncope Stated Complaint: syncope ED Provider: Milo Arias Discharge Problem: Syncope and collapse, Bradycardia, Acute hypotension Forms Stand Alone Forms: My [facility] Prescriptions Prescriptions: No Action clopidogrel 75 mg tablet 75 mg PO DAILY Qty: 30 RF: 5 amlodipine 2.5 mg tablet 2.5 mg PO DAILY Qty: 30 RF: 5 irbesartan 150 mg tablet 150 mg PO DAILY Qty: 90 RF: 3 pravastatin 10 mg tablet 10 mg PO HS Qty: 30 RF: 11 aspirin 81 mg tablet,delayed release (DR/EC) 81 mg PO DAILY RF: 0 escitalopram oxalate 10 mg tablet 10 mg PO DAILY Qty: 30 RF: 5 zolpidem 5 mg tablet 5 mg PO HS Qty: 30 RF: 3 quetiapine [Seroquel] 25 mg Tablet 25 mg PO BID RF: 0 aspirin 81 mg Tablet,Chewable 81 mg PO DAILY RF: 0
[2019-10-24 13:57] LABS: Alanine Aminotransferase 14 U/L (12-78); Albumin Level 3.2 gm/dl (3.4-5.0); Aspartate Aminotransferase 14 U/L (15-37); BUN Creatinine Ratio 22.6 (10-20); Blood Urea Nitrogen 30 mg/dl (7-18); Calcium 8.6 mg/dl (8.5-10.1); Carbon Dioxide 27 mmol/L (21-32); Chloride 111 mmol/L (98-107); Creatinine Clr Calc Pharmacy 34.3 ml/min; Est GFR (African American) 55.8; Est GFR (Non-African American) 48.2; Glucose 97 mg/dl (70-99); Magnesium 2.4 mg/dl (1.8-2.4); Potassium 5.1 mmol/L (3.5-5.1); Sodium 144 mmol/L (136-145)
[2019-10-24 14:08] LABS: Albumin Globulin Ratio 1.1 (0.9-2); Alkaline Phosphatase 79 U/L (45-117); Bilirubin,Total 0.3 mg/dl (0.2-1); Globulin 2.8 gm/dl (2.5-4.0); Troponin I < 0.015 ng/ml (0-0.045)
--- NOTE | 2019-10-24 14:17 | Electrocardiogram Report ---
Test Reason : Blood Pressure : / mmHG Vent. Rate : 079 BPM Atrial Rate : 079 BPM P-R Int : 192 ms QRS Dur : 074 ms QT Int : 388 ms P-R-T Axes : 042 -14 005 degrees QTc Int : 444 ms Poor data quality, interpretation may be adversely affected Sinus rhythm with Premature atrial complexes Old Inferior infarct (cited on or before 16-SEP-2018) Poor R wave progression, consider anterior OR vs. lead placement vs. LVH Abnormal ECG When compared with ECG of 17-SEP-2018 08:43, Premature atrial complexes are now Present Otherwise no significant change Confirmed by Doc Lee ([id number]) on 10/24/2019 2:17:06 PM Referred By: REFERRED SELF Confirmed By:Doc Lee
--- NOTE | 2019-10-24 14:25 | XRay Report ---
XR chest 1V portable HISTORY: weakness COMPARISON: Chest 09/17/2018. FINDINGS: Bilateral calcified pleural plaques are again noted. The patient's head obscures the lung a pices. No definite pneumothorax. No pleural effusions. No new focal lung consolidations to suggest pn eumonia. No evidence for pulmonary edema. The heart remains mildly enlarged. IMPRESSION: No significant change compared to the prior study. No acute process. Stable cardiomegaly and bilatera l calcified pleural plaques. ACT 112: Negative or not required by law. Electronically signed by: Mauricio Huang M.D. 10/24/2019 2:24 PM
[2019-10-24 14:30] LABS: Bacteria Urine Automated 2+ (Negative)
[2019-10-24] MEDS ORDERED: OPTIRAY 320 125ml IV ONE (15:36)
--- NOTE | 2019-10-24 15:45 | CT Scan Report ---
HEAD CT NONCONTRAST CT DOSE: 848.96 mGycm HISTORY: syncope TECHNIQUE: Multiaxial CT images of the head were performed without the use of intravenous contrast. A utomated exposure control was utilized for this study. A dose lowering technique was utilized adheri ng to the principles of ALARA. Comparison: Head CT 09/17/2018. Findings: The paranasal sinuses and mastoid air cells are clear. The calvarium and skull base are int act. There is no mass, hematoma, midline shift, acute infarct. White matter hypodensity is nonspecifi c but suggestive of microvascular ischemic change. The ventricles and sulci demonstrate mild age-rela marv involutional changes. Old lacunar infarct seen within the left basal ganglia, unchanged. Impression: No significant change compared to the prior study. No acute intracranial abnormality. ACT 112: Negative or not required by law. Electronically signed by: Mauricio Huang M.D. 10/24/2019 3:44 PM
--- NOTE | 2019-10-24 15:51 | CT Scan Report ---
CT angio chest PE protocol CT DOSE: 585.84 mGycm HISTORY: 89 years-old Male with syncope, hypotension. Acute syncope with hypoxia TECHNIQUE: Multiple CTA images of the chest were obtained after the intravenous administration of 119 ml Optiray 320. Coronal and sagittal MIPS were obtained from the axial data set and were submitted for review. All measurements were obtained according to NASCET criteria. A dose lowering technique w as utilized adhering to the principles of ALARA. COMPARISON: Chest CT 09/25/2017 FINDINGS: CTA: Moderate cardiomegaly. Extensive coronary artery calcifications. Ectasia of the aortic isthmus and pr oximal descending thoracic aorta redemonstrated measuring up to 3.9 cm. No thoracic aortic aneurysm o r dissection. There is patency of the imaged great vessels. The pulmonary arterial tree is opacified to level of the proximal subsegmental branches and demonstrates no filling defects to suggest thrombo embolic disease. CT CHEST: Unremarkable thyroid. Prominent right hilar and subcarinal lymph nodes measure up to 9 mm, unchanged. There is no pneumothorax or pleural effusion. Mild dependent subsegmental bibasilar atelectasis. Sp ateral calcified pleural plaques are redemonstrated. Biapical pleural-parenchymal scarring. No overt pulmonary edema or lobar airspace consolidation typical for pneumonia. 7 x 5 mm irregular nodule of t he right lung apex, image 2 7 series 4. In retrospect, this previously measured 5 x 4 mm. Mild bilate ral bronchial wall thickening. 5 mm solid nodule of the apical posterior segment left upper lobe on i mage 239 series 4 is unchanged. Moderate hiatal hernia. Mild distal esophageal wall thickening. Mildl y distended gallbladder. Gynecomastia. Degenerative changes of the spine and shoulders. No acute frac ture or suspicious bone lesion. IMPRESSION: 1. Cardiomegaly without evidence of pulmonary thromboembolic disease. 2. 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 3. Mild bronchial wall thickening may reflect bronchitis or reactive airway disease. 4. Irregular 7 x 5 mm solid nodule of the right upper lobe. Follow-up guidelines provided below. Please refer to below summary of Fleischner criteria recommendations for follow-up of incidental CT n odules ([place], Guidelines for management of small pulmonary nodules detected on CT scans: A sta tement from the Fleischner Society, Radiology 237: [phone].) SOLID NODULES Solitary nodule size: <6 mm * Low risk patients: no follow-up needed * high risk patients: optional CT at 12 months Solitary nodule size: 6-8 mm * Low risk patients: follow-up at 6-12 months, then consider further follow-up at 18-24 months * high risk patients: initial follow-up CT at 6-12 months and then at 18-24 months if no change Solitary nodule size: >8 mm * either low or high risk patients - consider follow-up CT at 3 months, and/or CT-PET, and/or biopsy Multiple nodules size: <6 mm * Low risk patients: no routine follow-up * high risk patients: optional CT at 12 months Multiple nodules size: 6-8 mm * Low risk patients: follow-up at 3-6 months, then consider further follow-up at 18-24 months * high risk patients: follow-up at 3-6 months, then at 18-24 months if no change Multiple nodules size: >8 mm * Low risk patients: follow-up at 3-6 months, then consider further follow-up at 18-24 months * high risk patients: follow-up at 3-6 months, then at 18-24 months if no change Note: newly detected indeterminate nodule in persons 35 years of age or older. * Low risk patients: minimal or absent history of smoking and/or other known risk factors * high risk patients: history of smoking or of other known risk factors (e.g. first degree relative with lung cancer, or exposure to asbestos, radon, uranium) * if a nodule up to 8 mm is partly solid or is ground glass further follow-up is required after 24 m onths to exclude possible slow growing adenocarcinoma ([facility]AYDEE) The above report was generated using voice recognition software. It may contain grammatical, syntax o r spelling errors. ACT 112: Negative or not required by law. The above report was generated using voice recognition software. It may contain grammatical, syntax o r spelling errors. Electronically signed by: Diego Chen M.D. 10/24/2019 3:50 PM
--- NOTE | 2019-10-24 17:36 | History & Physical Report ---
Date of Service October 24, 2019 Assessment & Plan (1) Syncope and collapse: Concerning for cardiac arrythmia. Will monitor on telemetry. TTE. Serial troponins (2) Bradycardia: ?vagal stimulation vs. heart block. Monitor on telemetry. (3) Acute hypotension: Hold irbesartan, amlodipine, monitor BP (4) CAD (coronary artery disease): Continue ASA, Plavix, holding antihypertensives at this time. (5) CVA (cerebral vascular accident): Continue ASA, Plavix, holding antihypertensives at this time. (6) Altered mental status: UA pending, no elevated WBC. CXR unremarkable for infection. (7) Dementia: Continue his usual Seroquel 25mg PO BID (8) DVT prophylaxis: Lovenox 40mg PO QPM Admission and Anticipated Discharge Date Admission Date: October 25, 2019 History of Present Illness Chief Complaint: Syncope Primary Care Provider: [facility] Hilario Dixon is an 89 year old male with severe senile dementia and behavioral disturbances who now resides at [facility] dementia unit who presents to the ER due to acute worsening of his mental state and a syncopal event with associated hypotension. He has dementia and usually is not orientated x3. Due to hypotension and bradycardia he was given atropine and a NSS bolus pre-hospital and vital signs have been stable since arrival in the ER. Unable to get any history from the patient due to his dementia. He was reportedly walking back to his room and became acutely diaphoretic, bradycardic and hypotensive. In the ER he was given 0.5mg of Ativan due to ongoing agitation and referred to medicine for ongoing workup of his syncopal event. Allergies Allergy/AdvReac Type Severity Reaction Status Date / Time No Known Allergies Allergy Mild Unverified 10/24/19 14:44 Home Medications Home Medications Medication Instructions Recorded Confirmed Type clopidogrel 75 mg tablet 75 mg PO DAILY #30 tab 09/11/18 10/24/19 Rx escitalopram oxalate 10 mg tablet 10 mg PO DAILY #30 tab 09/23/18 10/24/19 Rx amlodipine 2.5 mg tablet 2.5 mg PO DAILY #30 tab 10/11/18 10/24/19 Rx irbesartan 150 mg tablet 150 mg PO DAILY #90 tab 11/22/18 10/24/19 Rx pravastatin 10 mg tablet 10 mg PO HS #30 tab 12/11/18 10/24/19 Rx aspirin 81 mg tablet,delayed 81 mg PO DAILY tab 12/30/18 10/24/19 History release zolpidem 5 mg tablet 5 mg PO HS #30 tab 12/30/18 10/24/19 Rx aspirin 81 mg PO DAILY 10/24/19 10/24/19 History quetiapine [Seroquel] 25 mg PO BID 10/24/19 10/24/19 History Past Med/Surg History Medical History (Updated 10/26/19 @ 08:57 by Obinna Watson MD) CVA (cerebral vascular accident) Dementia Hypertension Surgical History (Updated 09/17/18 @ 03:02 by Lexi Starr DO) History of prostatectomy Surgical history unknown Family History Other Cancer Heart disease Hypertension Social History (Updated 12/30/18 @ 13:32 by Tish Bennett) Smoking Status: Unknown if ever smoked Second Hand Exposure: No; Hx Alcohol Use: No Hx Substance Use: No Preferred Language: Turkmen Communication Ability: Impaired Day Care Provider Required: No Beliefs That Will Affect Care: None marital status: Current Living Situation: [facility] Current Living Situation Comment: [facility] Feels Safe at Home: Yes Review of Systems Review of Systems: Unobtainable due to cognitive status Physical Exam Constitutional: + acute distress (agitated) and + frail appearing; + not well nourished Eyes: + anicteric sclerae; normal pupil size ENMT: external ear and nose normal, oropharynx normal Neck: trachea midline, no thyromegaly Respiratory: normal respiratory effort, lungs clear to auscultation Cardiovascular: Rate/Rhythm: regular rate and regular rhythm Extremities: normal capillary refill; no pedal edema Gastrointestinal (Abdomen): Inspection/Auscultation: normal bowel sounds Percussion/Palpation: abdomen soft; abdomen nontender, no guarding and abdomen not rigid Musculoskeletal: no cyanosis or clubbing, extremities motor strength 5/5 (moving all 4 extremities) Skin: Very dry skin Neurologic: moves all extremities (not co-operative with exam but moving all 4 extremities), awake and + confused Psychiatric: Orientation: alert; + not oriented x 3 Genitourinary: no CVA tenderness Results & Data Results & Data ([facility]) Vital Signs (Past 12 Hours) Vital Signs Temp Pulse Pulse Resp BP BP Pulse Ox 10/24/19 17:00 55 L 15 111/62 98 10/24/19 16:01 61 15 91/50 L 98 10/24/19 15:00 62 18 127/65 99 10/24/19 14:41 68 22 98/53 L 96 10/24/19 13:52 66 16 123/109 H 94 10/24/19 13:14 99 10/24/19 13:03 67 16 106/50 L 98 10/24/19 13:01 36.7 C 65 22 93/71 L 98 Diagnostic Findings XR chest 1V portable IMPRESSION: No significant change compared to the prior study. No acute process. Stable cardiomegaly and bilateral calcified pleural plaques. CT angio chest PE protocol IMPRESSION: 1. Cardiomegaly without evidence of pulmonary thromboembolic disease. 2. 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 3. Mild bronchial wall thickening may reflect bronchitis or reactive airway disease. 4. Irregular 7 x 5 mm solid nodule of the right upper lobe. Follow-up guidelines provided below. HEAD CT NONCONTRAST Impression: No significant change compared to the prior study. No acute intracranial abnormality. ECG Indication: altered mental status Rate (beats per minute): 79 Rhythm: normal sinus Code Status & VTE Plan Code Status DNR/DNI VTE Prophylaxis Plan VTE Prophylaxis will be ordered: Yes PG Care Time/CCT Total # of Minutes Spent Total Time Spent with Patient: Total time spent is greater than 50% in coordination of care (as documented) at patient's floor/unit and/or counseling patient: Coding Level of Care Code 24463 Initial Inpt Care Lvl 3 Diagnoses Syncope and collapse R55 Bradycardia R00.1 Acute hypotension I95.9 CAD (coronary artery disease) I25.10 CVA (cerebral vascular accident) I63.9 Altered mental status R41.82 Altered mental status type: unspecified Dementia F01.51 Dementia behavioral disturbance: with behavioral disturbance Dementia type: vascular dementia DVT prophylaxis Z29.9 (1) Dementia Dementia behavioral disturbance: with behavioral disturbance Dementia type: vascular dementia Qualified Code(s): F01.51 - Vascular dementia with behavioral disturbance (2) Altered mental status Altered mental status type: unspecified Qualified Code(s): R41.82 - Altered mental status, unspecified
[2019-10-24] MEDS ORDERED: ONDANSETRON INJ 2 MG/ML 2 ML VIAL IV PRN (17:43)
[2019-10-24] MEDS ORDERED: ACETAMINOPHEN 325 MG TAB PO PRN (17:43)
[2019-10-24] MEDS ORDERED: MAGNESIUM HYDROXIDE SUSP 30 ML UDC PO PRN (17:43)
[2019-10-24] MEDS ORDERED: ALUMINUM/MAGNESIUM SUSP 30 ML UDC PO PRN (17:43)
[2019-10-24] MEDS ORDERED: POLYETHYLENE (MIRALAX) 17 GM PACK PO PRN (17:43)
[2019-10-24] MEDS: ENOXAPARIN INJ 40 MG/0.4 ML SYR SQ SCH (20:26)
[2019-10-24] MEDS: QUEtiapine FUMARATE 25 MG TABLET PO SCH (20:26)
[2019-10-24] MEDS: PRAVASTATIN SOD 10 MG TAB PO SCH (20:26)
[2019-10-25] MEDS ORDERED: HALOPERIDOL LACTATE 5 MG/ML 1 ML VIAL IM STA (07:55)
[2019-10-25 07:57] LABS: Hematocrit (blood only) 37.6 % (42-52); Hemoglobin 12.3 g/dL (14.0-18.0); Mean Corpuscular Hemoglobin 31.8 pg (25-34); Mean Corpuscular Hgb Conc 32.7 g/dL (32-36); Mean Corpuscular Volume 97.2 fL (80-100); Mean Platelet Volume 9.9 fL (7.4-10.4); Platelet Count 175 K/uL (130-400); RDW Coefficient of Variation 12.9 % (11.5-14.5); RDW Standard Deviation 45.6 fL (36.4-46.3); Red Blood Count 3.87 M/uL (4.7-6.1); White Blood Count 6.82 K/uL (4.8-10.8)
--- NOTE | 2019-10-25 07:57 | Communication Note ---
Date of Service: October 25, 2019 called - agitation w violence. since baseline dementia and unable to redirect, calm, or improve situation with nonpharmacologic measures, and pt now putting self/others at risk of harm (and QTc OK) will give 2.5mg haldol IM x1
[2019-10-25 08:27] LABS: BUN Creatinine Ratio 18.4 (10-20); Blood Urea Nitrogen 23 mg/dl (7-18); Calcium 9.3 mg/dl (8.5-10.1); Carbon Dioxide 28 mmol/L (21-32); Chloride 109 mmol/L (98-107); Creatinine Clr Calc Pharmacy 36.8 ml/min; Est GFR (African American) 60.8; Est GFR (Non-African American) 52.5; Glucose 90 mg/dl (70-99); Potassium 4.5 mmol/L (3.5-5.1); Sodium 143 mmol/L (136-145)
[2019-10-25 08:31] LABS: Troponin I < 0.015 ng/ml (0-0.045)
[2019-10-25] MEDS: ASPIRIN 81 MG ECTAB PO SCH (08:42)
[2019-10-25] MEDS: ESCITALOPRAM OXALATE 10 MG TAB PO SCH (08:42)
[2019-10-25] MEDS: QUEtiapine FUMARATE 25 MG TABLET PO SCH ×2 (08:42→22:15)
[2019-10-25] MEDS: CLOPIDOGREL BISULFATE 75 MG TAB PO SCH (08:42)
--- NOTE | 2019-10-25 11:21 | XCELERA ---
[id number] \\[id number]
--- NOTE | 2019-10-25 16:54 | Electrocardiogram Report ---
Test Reason : Blood Pressure : / mmHG Vent. Rate : 058 BPM Atrial Rate : 058 BPM P-R Int : 222 ms QRS Dur : 080 ms QT Int : 426 ms P-R-T Axes : 054 000 034 degrees QTc Int : 418 ms Poor data quality, interpretation may be adversely affected Sinus bradycardia with 1st degree A-V block Otherwise normal ECG When compared with ECG of 24-OCT-2019 13:15, Premature atrial complexes are no longer Present AL interval has increased Criteria for Inferior infarct are no longer Present Nonspecific T wave abnormality no longer evident in Inferior leads Confirmed by Oli Wells ([id number]) on 10/25/2019 4:53:58 PM Referred By: REFERRED SELF Confirmed By:Rogelio Wells
--- NOTE | 2019-10-25 18:13 | Hospitalist Progress Note ---
Date of Service October 25, 2019 Assessment & Plan (1) Syncope and collapse: Serial troponin negative. Given concurrent hypotension with bradycardia this would suggest vagal syncope vs. arrhythmia. Echocardiogram - unremarkable with limited views taken. (2) Acute UTI: Difficult to know whether he is symptomatic from this. Since his feels he is off his baseline will start ceftriaxone 1g IV daily pending culture results. (3) Bradycardia: ?vagal stimulation vs. heart block. Monitor on telemetry. (4) Acute hypotension: Holding irbesartan, amlodipine, monitor BP (5) CAD (coronary artery disease): Continue ASA, Plavix, holding antihypertensives at this time. (6) CVA (cerebral vascular accident): Continue ASA, Plavix, holding antihypertensives at this time. (7) Altered mental status: ?secondary to UTI. Given advanced dementia difficult (8) Dementia: Continue his usual Seroquel 25mg PO BID (9) DVT prophylaxis: Lovenox 40mg PO QPM Admission and Anticipated Discharge Date Admission Date: October 24, 2019 Subjective Discussed care with his . She feels his mental state is still off his baseline. No arrhythmias on telemetry. Very agitated this morning and required IM haldol. Appears more calm at the present time. No recurrence in syncope. Unable to get full echocardiogram as patient not co-operative with test. Unable to get any history from the patient. UA concerning for UTI. Reportedly managed to eat breakfast well. Unable to get any information from patient as making incomprehensible sounds. Review of Systems Review of Systems: Unobtainable due to cognitive status Physical Exam Constitutional: + frail appearing; + not well nourished and no acute distress Eyes: + anicteric sclerae; normal pupil size ENMT: external ear and nose normal, oropharynx normal Respiratory: normal respiratory effort, lungs clear to auscultation Cardiovascular: Rate/Rhythm: regular rate and regular rhythm Extremities: normal capillary refill; no pedal edema Gastrointestinal (Abdomen): Inspection/Auscultation: normal bowel sounds Percussion/Palpation: abdomen soft; abdomen nontender, no guarding and abdomen not rigid Musculoskeletal: no cyanosis or clubbing, extremities motor strength 5/5 (moving all 4 extremities) Skin: Dry skin Neurologic: moves all extremities (not co-operative with exam but moving all 4 extremities), awake and + confused Psychiatric: Orientation: alert; + not oriented x 3 Results & Data Results & Data ([facility]) Vital Signs (Past 12 Hours) Vital Signs Temp Pulse Pulse Resp BP Pulse Ox 10/25/19 15:00 54 L 10/25/19 13:57 36.8 C 56 L 20 149/80 H 10/25/19 07:10 36.5 C 54 L 18 151/76 H 93 10/25/19 07:08 67 PG Care Time/CCT Total # of Minutes Spent Total Time Spent with Patient: Total time spent is greater than 50% in coordination of care (as documented) at patient's floor/unit and/or counseling patient: Coding Level of Care Code 77956 Subseq Hosp Care Lvl 2 Diagnoses Syncope and collapse R55 Acute UTI N39.0 Bradycardia R00.1 Acute hypotension I95.9 CAD (coronary artery disease) I25.10 CVA (cerebral vascular accident) I63.9 Altered mental status R41.82 Altered mental status type: unspecified Dementia F01.51 Dementia type: vascular dementia Dementia behavioral disturbance: with behavioral disturbance DVT prophylaxis Z29.9 (1) Altered mental status Altered mental status type: unspecified Qualified Code(s): R41.82 - Altered mental status, unspecified (2) Dementia Dementia type: vascular dementia Dementia behavioral disturbance: with behavioral disturbance Qualified Code(s): F01.51 - Vascular dementia with behavioral disturbance
[2019-10-25] MEDS ORDERED: cefTRIAXone SODIUM 1,000 MG in DEXTROSE 5% 50 ML IV SCH (22:00)
[2019-10-25] MEDS: ENOXAPARIN INJ 40 MG/0.4 ML SYR SQ SCH (22:13)
[2019-10-25] MEDS: PRAVASTATIN SOD 10 MG TAB PO SCH (22:14)
[2019-10-26] MEDS: CLOPIDOGREL BISULFATE 75 MG TAB PO SCH (08:05)
[2019-10-26] MEDS: ESCITALOPRAM OXALATE 10 MG TAB PO SCH (08:06)
[2019-10-26] MEDS: ASPIRIN 81 MG ECTAB PO SCH (08:06)
[2019-10-26] MEDS: QUEtiapine FUMARATE 25 MG TABLET PO SCH ×2 (08:07→19:46)
--- NOTE | 2019-10-26 11:06 | Electrocardiogram Report ---
Test Reason : Blood Pressure : / mmHG Vent. Rate : 054 BPM Atrial Rate : 054 BPM P-R Int : 214 ms QRS Dur : 082 ms QT Int : 430 ms P-R-T Axes : 050 011 -05 degrees QTc Int : 407 ms Sinus bradycardia with 1st degree A-V block Otherwise normal ECG When compared with ECG of 25-OCT-2019 06:49, T wave inversion now evident in Inferior leads Confirmed by Oli Wells ([id number]) on 10/26/2019 11:06:10 AM Referred By: REFERRED SELF Confirmed By:Rogelio Wells
--- NOTE | 2019-10-26 14:47 | Hospitalist Progress Note ---
Date of Service October 26, 2019 Assessment & Plan (1) Syncope and collapse: troponin negative, no arrhythmia, no further syncope Echocardiogram - unremarkable with limited views taken. could be due to UTI, Klebsiella? no other etiology found get PT/OT consults, plan for return to [facility] tomorrow (2) Acute UTI: urine culture with Klebseilla treated with Rocephin initially change to Keflex 500mg BID recommend 7 more days of treatment on discharge (3) Bradycardia: ?vagal stimulation vs. heart block. Monitor on telemetry he has been in the 60's will keep on monitor until discharge just to look for any block or worsening bradycardia (4) Acute hypotension: BP now hypertensive resume BP medications could have had some dehydration with UTI on admission (5) CAD (coronary artery disease): Continue ASA, Plavix, resume BP medications (6) CVA (cerebral vascular accident): Continue ASA, Plavix (7) Altered mental status: ?secondary to UTI. Given advanced dementia difficult today he is back to baseline according to family he is pleasant, laughing, making jokes (8) Dementia: Continue his usual Seroquel 25mg PO BID (9) DVT prophylaxis: Lovenox 40mg PO QPM get PT/OT evals order Covid screen for anticipated discharge tomorrow Admission and Anticipated Discharge Date Admission Date: October 24, 2019 Anticipated date of discharge: 10/27/19 Subjective patient doing great today he is sitting up in a chair, laughing and making jokes with his family around him no distress at all, no fever, vitals stable his says his mental status is at baseline, they just visited with him last Sunday he lives in memory unit at [facility] urine culture with Klebsiella reviewed chart, no other cause of altered mental status Review of Systems Review of Systems: Unobtainable due to cognitive status Physical Exam Constitutional: WD/WN, vitals as above Eyes: PERRL, conjunctivae normal, anicteric sclerae ENMT: external ear and nose normal, oropharynx normal Neck: trachea midline, no thyromegaly Respiratory: normal respiratory effort, lungs clear to auscultation Cardiovascular: RRR, no murmur, no edema Gastrointestinal (Abdomen): normal bowel sounds, soft, nontender, no hepatosplenomegaly Musculoskeletal: no cyanosis or clubbing, extremities motor strength 5/5 Skin: no rashes, warm and dry Neurologic: patellar DTR's 2+ bilat, sensation intact and PERRL, EOMI, accommodation nl, no face palsy, no dysarthria Psychiatric: Orientation: alert, oriented to person and cooperative; + not oriented to place and + not oriented to time Lymphatic: no cervical or axillary lymphadenopathy Results & Data Results & Data ([facility]) Vital Signs (Past 12 Hours) Vital Signs Temp Pulse Pulse Resp BP BP Pulse Ox 10/26/19 11:03 36.6 C 89 18 142/77 H 94 10/26/19 07:02 36.4 C L 66 70 16 165/89 H 99 10/26/19 03:23 36.7 C 55 L 20 168/67 H 97 Medications Administered Current Inpatient Medications Acetaminophen (Acetaminophen 325 Mg Tab) 650 mg PO Q4H PRN PRN Reason: Pain Stop: 11/23/19 17:42 Al Hydrox/Mg Hydrox/Simethicone (Aluminum/Magnesium Susp 30 Ml Udc) 15 ml PO Q4H PRN PRN Reason: Dyspepsia Stop: 11/23/19 17:42 Aspirin (Aspirin 81 Mg Ectab) 81 mg PO DAILY ENMA Stop: 11/24/19 08:59 Last Admin: 10/26/19 08:06 Dose: 81 mg Documented by: Cephalexin HCl (Cephalexin 500 Mg Cap) 500 mg PO BID ENMA Stop: 11/05/19 20:59 Clopidogrel Bisulfate (Clopidogrel Bisulfate 75 Mg Tab) 75 mg PO DAILY ENMA Stop: 11/24/19 08:59 Last Admin: 10/26/19 08:05 Dose: 75 mg Documented by: Enoxaparin Sodium (Enoxaparin Inj 40 Mg/0.4 Ml Syr) 40 mg SQ QPM ENMA Stop: 11/23/19 20:59 Last Admin: 10/25/19 22:13 Dose: 40 mg Documented by: Escitalopram Oxalate (Escitalopram Oxalate 10 Mg Tab) 10 mg PO DAILY ENMA Stop: 11/24/19 08:59 Last Admin: 10/26/19 08:06 Dose: 10 mg Documented by: Haloperidol (Haloperidol 5 Mg Tab) 2.5 mg PO Q6H PRN PRN Reason: Agitation Stop: 11/24/19 21:17 Magnesium Hydroxide (Magnesium Hydroxide Susp 30 Ml Udc) 30 ml PO Q12H PRN PRN Reason: Constipation Stop: 11/23/19 17:42 Ondansetron HCl (Ondansetron Inj 2 Mg/Ml 2 Ml Vial) 4 mg IV Q6H PRN PRN Reason: Nausea Stop: 11/23/19 17:42 Polyethylene Glycol (Polyethylene (Miralax) 17 Gm Pack) 17 gm PO DAILY PRN PRN Reason: Constipation Stop: 11/23/19 17:42 Pravastatin Sodium (Pravastatin Sod 10 Mg Tab) 10 mg PO HS ENMA Stop: 11/23/19 20:59 Last Admin: 10/25/19 22:14 Dose: 10 mg Documented by: Quetiapine Fumarate (Quetiapine Fumarate 25 Mg Tablet) 25 mg PO BID ENMA Stop: 11/23/19 20:59 Last Admin: 10/26/19 08:07 Dose: 25 mg Documented by: PG Care Time/CCT Total # of Minutes Spent Total Time Spent with Patient: Total time spent is greater than 50% in coordination of care (as documented) at patient's floor/unit and/or counseling patient: Coding Level of Care Code 31957 Subseq Hosp Care Lvl 2 Diagnoses Syncope and collapse R55 Acute UTI N39.0 Bradycardia R00.1 Acute hypotension I95.9 CAD (coronary artery disease) I25.10 CVA (cerebral vascular accident) I63.9 Altered mental status R41.82 Altered mental status type: unspecified Dementia F01.51 Dementia type: vascular dementia Dementia behavioral disturbance: with behavioral disturbance DVT prophylaxis Z29.9 (1) Altered mental status Altered mental status type: unspecified Qualified Code(s): R41.82 - Altered mental status, unspecified (2) Dementia Dementia type: vascular dementia Dementia behavioral disturbance: with behavioral disturbance Qualified Code(s): F01.51 - Vascular dementia with behavioral disturbance
[2019-10-26] MEDS: amLODIPine BESYLATE 5 MG TAB PO SCH (15:32)
[2019-10-26] MEDS: haloperidoL 5 MG TAB PO PRN (19:43)
[2019-10-26] MEDS: PRAVASTATIN SOD 10 MG TAB PO SCH (19:45)
[2019-10-26] MEDS: ENOXAPARIN INJ 40 MG/0.4 ML SYR SQ SCH (19:46)
[2019-10-26] MEDS: cephALEXin 500 MG CAP PO SCH (19:46)
[2019-10-27] MEDS: haloperidoL 5 MG TAB PO PRN (03:11)
[2019-10-27] MEDS: CLOPIDOGREL BISULFATE 75 MG TAB PO SCH (08:14)
[2019-10-27] MEDS: amLODIPine BESYLATE 5 MG TAB PO SCH (08:14)
[2019-10-27] MEDS: IRBESARTAN 150 MG TAB PO SCH (08:14)
[2019-10-27] MEDS: ASPIRIN 81 MG ECTAB PO SCH (08:14)
[2019-10-27] MEDS: cephALEXin 500 MG CAP PO SCH ×2 (08:14→19:35)
[2019-10-27] MEDS: QUEtiapine FUMARATE 25 MG TABLET PO SCH (08:14)
[2019-10-27] MEDS: ESCITALOPRAM OXALATE 10 MG TAB PO SCH (08:14)
[2019-10-27] MEDS ORDERED: SOD PHOSPHATE/SOD BIPHOSPHATE ENEMA 132 ML BTL PR STA (13:20)
--- NOTE | 2019-10-27 13:22 | Hospitalist Progress Note ---
Date of Service October 27, 2019 Assessment & Plan (1) Syncope and collapse: extensive cardiopulmonary w/u negative including CTA chest, echo, telemetry, troponins, etc. possibly 2nd to weakness from UTI? continue to treat UTI. continue telemetry to r/o dysrhythmia but again none found thus far. (2) Acute UTI: urine culture with [place]se[place] treated with Rocephin initially - changed to keflex 500mg BID needs AMARILYS to r/o prostatitis if latter is not present then total of 7 days of IV/PO abx (3) Bradycardia: no AV block, pauses, etc seen while here he is not on AV vidhi agents TSH wnl cont to monitor (4) Acute hypotension: vasovagal induced at time of admission? 2nd to volume depletion? other? resolved he is back on normal BP meds (5) CAD (coronary artery disease): no obvious ischemic symptoms continue ASA, Plavix, ARB, statin not candidate for beta roberto due to bradycardia (6) CVA (cerebral vascular accident): history of continue ASA, Plavix for secondary prevention (7) Altered mental status: had severe sundowning overnight likely combination of hospital psychosis + metabolic encephalopathy in setting of UTI & advanced dementia also was off his chronic ambien increase seroquel at HS to 37.5mg and resume ambien; PDMP shows he takes latter chronically check b12 level (8) Dementia: advanced (9) Metabolic encephalopathy: see above (10) Constipation: abd distension likely 2nd to such fleets enema x 1 then bowel maintenance (11) DVT prophylaxis: Lovenox 40mg daily COVID negative updated daughter by phone today anticipate d/c back to SNF tomorrow Admission and Anticipated Discharge Date Admission Date: October 24, 2019 Subjective patient very sleepy during my rounds. staff report that he did not sleep at all last night. Had sundowning requiring a total of 5mg of haldol. this is despite usual seroquel dosing. did not eat breakfast. no bowel movement during the hospital stay. Review of Systems Review of Systems: Unobtainable due to cognitive status Physical Exam Constitutional: no acute distress ENMT: external ear and nose normal, oropharynx normal Respiratory: normal respiratory effort, lungs clear to auscultation Cardiovascular: Rate/Rhythm: regular rate and regular rhythm Heart Sounds: normal S1 and normal S2; no murmur Vessels: posterior tibial pulses present and dorsalis pedis pulses present; no JVD Extremities: no edema Gastrointestinal (Abdomen): Inspection/Auscultation: + abdomen distended and normal bowel sounds Percussion/Palpation: abdomen nontender and no hepatosplenomegaly Psychiatric: very sleepy - unable to assess mental status Results & Data Results & Data ([facility]) Vital Signs (Past 12 Hours) Vital Signs Temp Pulse Pulse Resp BP Pulse Ox 10/27/19 11:47 36.5 C 55 L 16 100/64 96 10/27/19 09:30 54 L 10/27/19 06:56 36.5 C 90 18 153/86 H 98 10/27/19 03:08 36.8 C 57 L 20 157/78 H 96 Laboratory Results Laboratory Results - last 24 hr 10/26/19 10/26/19 Unknown Unknown [facility], [facility], NAAT NEGATIVE PG Care Time/CCT Total # of Minutes Spent Total Time Spent with Patient: Total time spent is greater than 50% in coordination of care (as documented) at patient's floor/unit and/or counseling patient: Coding Level of Care Code 96187 Subseq Hosp Care Lvl 2 Diagnoses Syncope and collapse R55 Acute UTI N39.0 Bradycardia R00.1 Acute hypotension I95.9 CAD (coronary artery disease) I25.10 Coronary Disease-Associated Artery/Lesion type: [place] artery [place] vs. transplanted heart: [place] heart Associated angina: without angina CVA (cerebral vascular accident) I63.9 CVA mechanism: unspecified Altered mental status R41.82 Altered mental status type: unspecified Dementia F01.51 Dementia behavioral disturbance: with behavioral disturbance Dementia type: vascular dementia Metabolic encephalopathy G93.41 Constipation K59.00 DVT prophylaxis Z29.9 (1) CAD (coronary artery disease) Coronary Disease-Associated Artery/Lesion type: [place] artery [place] vs. transplanted heart: [place] heart Associated angina: without angina Qualified Code(s): I25.10 - Atherosclerotic heart disease of [place] coronary artery without angina pectoris (2) Dementia Dementia behavioral disturbance: with behavioral disturbance Dementia type: vascular dementia Qualified Code(s): F01.51 - Vascular dementia with behavioral disturbance (3) Altered mental status Altered mental status type: unspecified Qualified Code(s): R41.82 - Altered mental status, unspecified (4) CVA (cerebral vascular accident) CVA mechanism: unspecified Qualified Code(s): I63.9 - Cerebral infarction, unspecified
[2019-10-27] MEDS ORDERED: SOD PHOSPHATE/SOD BIPHOSPHATE ENEMA 132 ML BTL PR ONE (15:31)
[2019-10-27] MEDS: ENOXAPARIN INJ 40 MG/0.4 ML SYR SQ SCH (19:34)
[2019-10-27] MEDS: PRAVASTATIN SOD 10 MG TAB PO SCH (19:35)
[2019-10-27] MEDS ORDERED: QUEtiapine FUMARATE 25 MG TABLET PO SCH ×2 (21:00)
[2019-10-27] MEDS ORDERED: risperiDONE ODT 0.5 MG SOLTAB PO SCH (21:00)
[2019-10-27] MEDS ORDERED: ZOLPIDEM TARTRATE 5 MG TAB PO SCH (21:00)
[2019-10-28] MEDS: cephALEXin 500 MG CAP PO SCH (08:18)
[2019-10-28] MEDS: IRBESARTAN 150 MG TAB PO SCH (08:19)
[2019-10-28] MEDS: amLODIPine BESYLATE 5 MG TAB PO SCH (08:19)
[2019-10-28] MEDS: ASPIRIN 81 MG ECTAB PO SCH (08:19)
[2019-10-28] MEDS: ESCITALOPRAM OXALATE 10 MG TAB PO SCH (08:20)
[2019-10-28] MEDS: CLOPIDOGREL BISULFATE 75 MG TAB PO SCH (08:20)
[2019-10-28] MEDS ORDERED: QUEtiapine FUMARATE 25 MG TABLET PO SCH (09:00)
[2019-10-28 10:28] LABS: BUN Creatinine Ratio 17.4 (10-20); Calcium 9.1 mg/dl (8.5-10.1); Creatinine Clr Calc Pharmacy 26.9 ml/min; Est GFR (African American) 41.7; Potassium 4.8 mmol/L (3.5-5.1)
[2019-10-28] MEDS ORDERED: SODIUM CHLORIDE 0.45 % 1,000 ML IV SCH (10:45)
[2019-10-28 15:21] LABS: BUN Creatinine Ratio 22.6 (10-20); Calcium 8.5 mg/dl (8.5-10.1); Creatinine Clr Calc Pharmacy 32.1 ml/min; Est GFR (African American) 51.5; Est GFR (Non-African American) 44.5
--- NOTE | 2019-10-28 16:38 | Discharge Summary ---
Date of Service date of admission - October 24, 2019 date of discharge - October 28, 2019 Admission HPI Per Admitting Provider Hilario Dixon is an 89 year old male with severe senile dementia and behavioral disturbances who now resides at [facility] dementia unit who presents to the ER due to acute worsening of his mental state and a syncopal event with associated hypotension. He has dementia and usually is not orientated x3. Due to hypotension and bradycardia he was given atropine and a NSS bolus pre-hospital and vital signs have been stable since arrival in the ER. Unable to get any history from the patient due to his dementia. He was reportedly walking back to his room and became acutely diaphoretic, bradycardic and hypotensive. In the ER he was given 0.5mg of Ativan due to ongoing agitation and referred to medicine for ongoing workup of his syncopal event. Principal Diagnosis 1. syncope - 2nd to vasovagal episode? 2. transient hypotension & bradycardia - 2nd to #1? 3. UTI Discharge Exam Constitutional no acute distress and no altered mental status ENMT external ear and nose normal, oropharynx normal Respiratory normal respiratory effort, lungs clear to auscultation Cardiovascular Rate/Rhythm: regular rate and regular rhythm Heart Sounds: normal S1 and normal S2; no murmur Vessels: posterior tibial pulses present and dorsalis pedis pulses present; no JVD Extremities: no edema Gastrointestinal (Abdomen) Inspection/Auscultation: normal bowel sounds; abdomen not distended Percussion/Palpation: abdomen nontender and no hepatosplenomegaly AMARILYS - question of absent prostate; if prostate is still present it is minimally enlarged. There was no tenderness during the AMARILYS. No residual fecal impaction. Discharge Data Allergies Allergy/AdvReac Type Severity Reaction Status Date / Time No Known Allergies Allergy Mild Unverified 10/24/19 14:44 Ordered Studies 10/24/19 14:47 CT angio chest PE protocol Stat IMPRESSION: 1. Cardiomegaly without evidence of pulmonary thromboembolic disease. 2. 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 3. Mild bronchial wall thickening may reflect bronchitis or reactive airway disease. 4. Irregular 7 x 5 mm solid nodule of the right upper lobe. Follow-up guidelines provided below. 10/24/19 CT head/brain wo con Stat Findings: The paranasal sinuses and mastoid air cells are clear. The calvarium and skull base are intact. There is no mass, hematoma, midline shift, acute infarct. White matter hypodensity is nonspecific but suggestive of microvascular ischemic change. The ventricles and sulci demonstrate mild age-related involutional changes. Old lacunar infarct seen within the left basal ganglia, unchanged. Echocardiogram: * EF 55-60% * normal LV wall motion * normal valvular function Hospital Course (1) Syncope and collapse: extensive cardiopulmonary w/u negative including CTA chest, echo, telemetry, troponins, etc. possibly 2nd to weakness from UTI? vasovagal spell in setting of UTI? UTI treated with IV/PO antibiotics. Telemetry showed sinus bradycardia but no dysrhythmia, AV block, or pauses. He had no other pre-syncope or syncopal spells while here. (2) Acute UTI: urine culture with [place] treated with Rocephin initially - changed to keflex 500mg BID AMARILYS negative for prostatitis although records suggest he is s/p prostatectomy? will finish course of keflex at [place] (3) Bradycardia: no AV block, pauses, etc seen while here he is not on AV vidhi agents TSH wnl bradycardia could have been 2nd to vasovagal episode in setting of UTI (4) Acute hypotension: vasovagal induced? volume depletion? other? resolved by the AM of hospital day #2 his BPs had started to run high and chronic BP meds were resumed (5) CAD (coronary artery disease): no obvious ischemic symptoms continue ASA, Plavix, ARB, statin not candidate for beta roberto due to bradycardia (6) CVA (cerebral vascular accident): history of continue ASA, Plavix for secondary prevention (7) Altered mental status: had severe sundowning while here likely combination of hospital psychosis + metabolic encephalopathy in setting of UTI & advanced dementia continue usual meds including seroquel BID and ambien at HS (latter is chronic med for him) (8) Dementia: advanced (9) Metabolic encephalopathy: see above (10) Constipation: required enema while hospitalized should continue on a bowel maintenance (11) Chronic kidney disease, stage 3a: baseline CrCl low 30s baseline Cr 1.2 had transient rise in Cr to 1.6, improving to 1.4 at discharge exact cause uncertain - may have been related to poor oral intake or possibly due to CT contrast recommend repeat BMP in 3-4 days post-discharge for stability (12) Pulmonary nodule: in light of advanced age and advanced dementia would not pursue additional screening CTs in the future Total Time Total Time Spent Total Time Spent (In Minutes): 40 Total Time Includes: Examination of the Patient, Discharge Planning and Medication Reconciliation Discharge Plan Discharge Items Patient Disposition: Transfer [facility] Fac Reason For Visit: SYNCOPE Discharge Diagnosis: Syncope - 2nd to UTI? Acute MN, PE not found. Activity: Resume your previous activity Non-emergency contact: Primary Care Provider Call non-emergency contact if: you have a fever Follow-up/Referrals: Ty Lanier [Primary Care Provider] - Diet: Regular Diet Texture: Easy to Chew Addtl Attending Provider Instructions: Mr Dixon was admitted to [facility] after suffering a syncopal episode. This was associated with low heart rate and low blood pressure. We did not find heart attack, heart block, or blood clots of the lungs. He did have a urinary tract infection and received antibiotics for such. Heart monitoring failed to show any significant arrhythmia. He had sinus bradycardia on monitoring but no obvious symptoms from such. Echocardiogram was normal as well. He did have fecal impaction treated with enemas - this is now resolved. Rectal exam on day of discharge failed to show impaction or evidence of prostatitis. COVID-19 test was sent on 10/28/19 and is pending at time of discharge. Lastly, patient had incidentally found pulmonary nodule on CAT scan of the lungs. Given advanced age, advanced dementia, and DNR status would not strongly recommend follow-up or work-up for this. Recommendations - 1. take cephalexin twice daily for 4 more days (8 doses). 2. take miralax with sennakot daily for bowel maintenance. 3. if syncope occurs again consider 30-day event monitor to rule out heart block, pauses, arrhythmia, etc. 4. recheck BMP (basic metabolic panel) in 3 days. Results to conference director. Pending Studies at Discharge: No Stand-Alone Forms: My [facility] Skilled Items Patient informed of condition?: No DNR: Yes Discharge Level of Care: Skilled Communicable Disease: No Discharge Prognosis: Stable Lines: None Urinary Catheter: No Medications and DC Order Prescriptions: New polyethylene glycol 3350 [Miralax] 17 gram Powder In Packet 17 g PO DAILY Qty: 1 RF: 0 sennosides [Senna Lax] 8.6 mg tablet 17.2 mg PO DAILY Qty: 60 RF: 0 zolpidem 5 mg tablet 5 mg PO HS Qty: 30 RF: 0 Continued clopidogrel 75 mg tablet 75 mg PO DAILY Qty: 30 RF: 5 amlodipine 2.5 mg tablet 2.5 mg PO DAILY Qty: 30 RF: 5 irbesartan 150 mg tablet 150 mg PO DAILY Qty: 90 RF: 3 pravastatin 10 mg tablet 10 mg PO HS Qty: 30 RF: 11 escitalopram oxalate 10 mg tablet 10 mg PO DAILY Qty: 30 RF: 5 quetiapine [Seroquel] 25 mg Tablet 25 mg PO BID RF: 0 aspirin 81 mg Tablet,Chewable 81 mg PO DAILY RF: 0 Discontinued aspirin 81 mg tablet,delayed release (DR/EC) 81 mg PO DAILY RF: 0 Discharge Orders: Discharge Order (Routine); Ordered 10/28/19 Ordered By: Obinna Reyes Admission Data Admit Date/Time: 10/24/19 16:15 Attending Provider: Obinna Reyes Admit Provider: Obinna Watson Primary Care Provider: Ty Lanier Other Providers: Obinna Watson ; Martin Graff ; Ty Lanier Other Interventions: Discharge Summary Assessment (RN) Last Done: 10/28/19 16:39 Coding Level of Care Code D/C Day Management >30 mins Diagnoses Syncope and collapse R55 Acute UTI N39.0 Bradycardia R00.1 Acute hypotension I95.9 CAD (coronary artery disease) I25.10 Associated angina: without angina Coronary Disease-Associated Artery/Lesion type: [place] artery [place] vs. transplanted heart: [place] heart CVA (cerebral vascular accident) I63.9 CVA mechanism: unspecified Altered mental status R41.82 Altered mental status type: unspecified Dementia F01.51 Dementia behavioral disturbance: with behavioral disturbance Dementia type: vascular dementia Metabolic encephalopathy G93.41 Constipation K59.00 Chronic kidney disease, stage 3a N18.3 Pulmonary nodule R91.1
== END 2019-10-28 18:00 | DRG 689 ==
LOC: ED 12:53 → SUATTDRO 16:15 → 2N 16:15